=== PATIENT | male | born 1945 | race Caucasian/White ===

== ENCOUNTER 2017-05-29 07:30 | Inpatient (IN) | payer MEDICARE, BC ==
[2017-05-29] MEDS ORDERED: FLU Vacc TS 2017-18 (65yr UP)/PF 180 MCG/0.5 ML Syringe IM ONE (09:26)
[2017-05-29] MEDS ORDERED: Lidocaine 1%/Sod Bicarbonate in NS 8.4% 1 ML Syringe IV PRN (10:27)
[2017-05-29] MEDS ORDERED: Sodium Chloride 0.9% 10 ML Syringe FLUSH PRN (10:27)
[2017-05-29] MEDS ORDERED: Lactated Ringers 1,000 ML IV SCH (10:30)
[2017-05-29] MEDS ORDERED: Propofol 200 MG/20 ML SDV ONE (10:41)
[2017-05-29] MEDS ORDERED: Ondansetron 4 MG/2 ML SDV ONE (10:41)
[2017-05-29] MEDS ORDERED: fentaNYL 100 MCG/2 ML SDV ONE (10:42)
[2017-05-29] MEDS ORDERED: Midazolam 1 MG/ML 2 ML SDV ONE (10:42)
[2017-05-29] MEDS ORDERED: ceFAZolin 1 GM Vial ONE (10:44)
--- NOTE | 2017-05-29 10:49 | PCM.PREANE ---
Preanesthetic Assessment - Anesthesia/Transfusion/Family Hx Anesthesia History: Prior Anesthesia Without Reaction Family History of Anesthesia Reaction: No Transfusion History: No Prior Transfusion(s) Intubation History: Unknown - Review of Systems General: No Symptoms, Fatigue Pulmonary: No Symptoms Cardiovascular: No Symptoms (HTN, CAD, Carotid artery disease), Dyspnea on Exertion (on occasion) Gastrointestinal: No Symptoms (GERD) Neurological: No Symptoms (Lumbar spine surgery: L2-L5. with bilateral feet paresthesia), Numbness (sacroiliac joint pain, neuropathy/left hand 3 finger numbness (1,2,3)), Weakness (bilateral leg weakness), Gait Disturbance Other: Reports: Sinus Problem (allergic rhinitis), Depression - Physical Assessment NPO Status Date: 05/28/17 NPO Status Time: 22:00 Pulse: 64 O2 Sat by Pulse Oximetry: 96 Respiratory Rate: 16 Blood Pressure: 133/74 Temperature: 36.6 C Vital Signs: Last Vital Signs Temp 36.6 C 05/29/17 09:10 Pulse 64 05/29/17 09:10 Resp 16 05/29/17 09:10 BP 133/74 05/29/17 09:10 Pulse Ox 96 05/29/17 09:10 Height: 1.8 m Weight: 85.729 kg ASA Class: 3 Mental Status: Alert & Oriented x3 Airway Class: Mallampati = 2 Dentition: Reports: Normal Dentition, Missing Tooth/Teeth, Caries Thyro-Mental Finger Breadths: 3 Mouth Opening Finger Breadths: 3 ROM/Head Extension: Full Lungs: Clear to Auscultation, Normal Respiratory Effort Cardiovascular: Regular Rate, Regular Rhythm, No Murmurs - Lab Values: Laboratory Last Values MRSA (PCR) Negative 05/16/17 16:00 All lab values reviewed and noted and within acceptable ranges to proceed with scheduled procedure. - Imaging/EKG Impressions: EKG: NSR rate 64, nonspecific T wave abnormality Stress test 2016: negative CXR: negative - Allergies Allergies/Adverse Reactions: Allergies Allergy/AdvReac Type Severity Reaction Status Date / Time NSAIDS (Non-Steroidal Allergy Rash Verified 05/26/17 07:25 Anti-Inflamma povidone-iodine Allergy Rash Verified 05/26/17 07:25 [From Betadine] soap [From Betadine] Allergy Rash Verified 05/26/17 07:25 valdecoxib [From Bextra] Allergy Unknown Verified 05/26/17 07:25 ezetimibe [From Zetia] AdvReac Weakness, Verified 05/29/17 07:21 Nausea zolpidem [From Ambien] AdvReac Confusion Verified 05/29/17 07:21 - Anesthesia Plan Pre-Op Medication Ordered: Beta Dianne Beta Dianne: Other (Bystolic) Med Last Dose Date: 05/29/17 Med Last Dose Time: 06:30 - Acknowledgements Anesthesia Type Planned: Spinal Pt an Appropriate Candidate for the Planned Anesthesia: Yes Alternatives and Risks of Anesthesia Discussed w Pt/Guardian: Yes Pt/Guardian Understands and Agrees with Anesthesia Plan: Yes PreAnesthesia Questionnaire HEENT History: Reports: Allergic Rhinitis Cardiovascular History: Reports: CAD, High Cholesterol, Hypertension Other Cardiovascular History: Generalized Atherosclerosis Gastrointestinal History: Reports: GERD Other Gastrointestinal History: Change in Bowel Habit Hx. Genitourinary History: Reports: Other (See Below) Other Genitourinary History: Increased Creatinine, Hyperurcemia, Hypognadism, [place] Musculoskeletal History: Reports: Osteoarthritis, SLE Other Musculoskeletal History: SI Joint Pain, Left Foot Pain, Deformity of Right Foot Neurological History: Reports: Other (See Below) Other Neuro History: Tremor, Neuropathy Psychiatric History: Reports: Depression, Other (See Below) Other Psychiatric History: Patient states he has occassional depression, but denies depresion at this time. Patient also has history of fatigue. Other Hematologic History: Leukopenia - Past Surgical History Other HEENT Surgeries/Procedures: Patient wears glasses. Cardiovascular Surgical History: Reports: Carotid Endarterectomy, Coronary Artery Stent GI Surgical History: Reports: None Male Surgical History: Reports: None Neurological Surgical History: Reports: Lumbar Spine Musculoskeletal Surgical History: Reports: Knee Replacement, Shoulder Surgery, Other (See Below) Other Musculoskeletal Surgeries/Procedures:: Left Rotator Cuff Repair, Left Total Knee Arthroplasty - SUBSTANCE USE Smoking Status *Q: Former Smoker Tobacco Use Within Last Twelve Months: Smokeless Tobacco, Snuff/Dip Days Per Week of Alcohol Use: 0 Recreational Drug Use History: No - HOME MEDS Home Medications: Home Meds Allopurinol [Zyloprim] 300 mg PO DAILY 05/26/17 [History] Aspirin 325 mg PO DAILY 05/26/17 [History] Cholecalciferol (Vitamin D3) [Vitamin D] 1 tab PO DAILY 05/26/17 [History] Cyanocobalamin (Vitamin B-12) [Vitamin B-12] 1 tab PO DAILY 05/26/17 [History] Nebivolol [Bystolic] 5 mg PO DAILY 05/26/17 [History] Testosterone Cypionate [Depo-Testosterone] 1 ampule IM ASDIRECTED 05/26/17 [ History] Triamterene/Hydrochlorothiazid [Triamterene-HCTZ 37.5-25 MG] 1 tab PO DAILY [History] Ubidecarenone [Co Q-10] 100 mg PO DAILY 05/26/17 [History] atorvaSTATin [Lipitor] 10 mg PO DAILY 05/26/17 [History] - CURRENT (IN HOUSE) MEDS Current Meds: Current Medications Aspirin (Ecotrin) 325 mg PO BID VITALY Bisacodyl (Dulcolax) 5 mg PO DAILY PRN PRN Reason: Constipation Epinephrine HCl 0.3 mg/Cefuroxime Sodium 750 mg/Sodium Chloride 27.9 ml/ Morphine Sulfate 8 mg 0 mg .XX ONETIME ONE Stop: 05/29/17 11:31 Cyclobenzaprine HCl (Flexeril) 10 mg PO TID PRN PRN Reason: Spasms Diphenhydramine HCl (Benadryl) 25 mg IVPUSH Q4H PRN PRN Reason: Nausea Docusate Sodium (Colace) 100 mg PO BID VITALY Famotidine (Pepcid) 20 mg PO BID PENDING SALE TO [facility] Cefazolin Sodium/Dextrose 2 gm (/ Premix) 50 mls @ 100 mls/hr IV Q8H PENDING SALE TO [facility] Stop: 05/30/17 10:44 Lactated Ringer's (Ringers, Lactated) 1,000 mls @ 125 mls/hr IV ASDIRECTED PENDING SALE TO [facility] Last Admin: 05/29/17 09:40 Dose: 125 mls/hr Lidocaine/Sodium Bicarbonate (Buffered Lidocaine 1% In Ns 8.4%) 0.25 ml IV ONETIME PRN PRN Reason: Prior to IV Start Last Admin: 05/29/17 09:39 Dose: 0.25 ml Magnesium Hydroxide (Milk Of Magnesia) 30 ml PO BID PRN PRN Reason: Constipation Morphine Sulfate (Morphine) 2 mg IVPUSH Q2H PRN PRN Reason: Breakthrough Pain Naloxone HCl (Narcan) 0.1 mg IVPUSH Q5M PRN PRN Reason: Oversedation Ondansetron HCl (Zofran) 4 mg IVPUSH Q6H PRN PRN Reason: Nausea/Vomiting Oxycodone/Acetaminophen (Percocet 325-5 Mg) 1 - 2 tab PO Q4H PRN PRN Reason: Pain Senna (Senna) 8.6 mg PO BID PRN PRN Reason: Constipation Sodium Chloride (Saline Flush) 10 ml FLUSH ASDIRECTED PRN PRN Reason: Keep Vein Open Discontinued Medications Bupivacaine HCl (Marcaine 0.25%) Confirm Administered Dose 30 ml .ROUTE .STK- MED ONE Stop: 05/29/17 10:10 Cefazolin Sodium (Ancef) Confirm Administered Dose 2 gm .ROUTE .STK-MED ONE Stop: 05/29/17 10:09 Cefazolin Sodium (Ancef) Confirm Administered Dose 2 gm .ROUTE .STK-MED ONE Stop: 05/29/17 10:45 Fentanyl (Sublimaze) Confirm Administered Dose 100 mcg .ROUTE .STK-MED ONE Stop: 05/29/17 10:43 Influenza Virus Vaccine (Fluzone High-Dose ) 180 mcg IM .ONCE ONE Stop: 05/29/17 09:27 Midazolam HCl (Versed 1 Mg/Ml) Confirm Administered Dose 2 mg .ROUTE .STK-MED ONE Stop: 05/29/17 10:43 Ondansetron HCl (Zofran) Confirm Administered Dose 4 mg .ROUTE .STK-MED ONE Stop: 05/29/17 10:42 Propofol (Diprivan 20 Ml) Confirm Administered Dose 600 mg .ROUTE .STK-MED ONE Stop: 05/29/17 10:42 Tranexamic Acid (Cyklokapron) Confirm Administered Dose 1,000 mg .ROUTE .STK- MED ONE Stop: 05/29/17 10:09 Vancomycin HCl (Vancomycin) Confirm Administered Dose 1 gm .ROUTE .STK-MED ONE Stop: 05/29/17 10:09
[2017-05-29] MEDS ORDERED: Morphine PF 1 MG/ML Amp ONE (10:58)
[2017-05-29] MEDS ORDERED: SODIUM CHLORIDE 0.9% ONE ×8 (11:30→12:30)
[2017-05-29] MEDS ORDERED: EPINEPHRINE ONE ×8 (11:30→12:30)
[2017-05-29] MEDS ORDERED: MORPHINE ONE ×8 (11:30→12:30)
[2017-05-29] MEDS ORDERED: CEFUROXIME ONE ×8 (11:30→12:30)
[2017-05-29] MEDS: Bupivacaine 0.25% 30 ML SDV ONE ×2 (12:20→12:49)
[2017-05-29] MEDS: ceFAZolin 1 GM Vial ONE ×2 (12:20→12:42)
[2017-05-29] MEDS: Vancomycin 1 GM SDV ONE ×2 (12:22→12:52)
[2017-05-29] MEDS ORDERED: Naloxone 0.4 MG/ML SDV IVPUSH PRN (13:00)
[2017-05-29] MEDS ORDERED: Morphine 4 MG/ML Syringe IVPUSH PRN (13:00)
[2017-05-29] MEDS ORDERED: Ondansetron 4 MG/2 ML SDV IVPUSH PRN ×2 (13:00→13:54)
[2017-05-29] MEDS ORDERED: Magnesium Hydroxide 400 MG/5 ML Susp 30 ML Cup PO PRN (13:00)
[2017-05-29] MEDS ORDERED: Bisacodyl 5 MG Tab PO PRN (13:00)
[2017-05-29] MEDS ORDERED: diphenhydrAMINE 50 MG/ML SDV IVPUSH PRN ×2 (13:00→13:54)
[2017-05-29] MEDS ORDERED: Sennosides 8.6 MG Tab PO PRN (13:00)
--- NOTE | 2017-05-29 13:52 | PCM.POSTAN ---
POST ANESTHESIA ASSESSMENT - MENTAL STATUS Mental Status: Other (drowsy) - VITAL SIGNS Pulse Rate: 72 SaO2: 96 Resp Rate: 16 Blood Pressure: 90/56 Temperature: 36.5 C - RESPIRATORY Respiratory Status: Respiratory Rate WNL, Airway Patent, O2 Saturation Stable - CARDIOVASCULAR CV Status: Pulse Rate WNL, Blood Pressure Stable - GASTROINTESTINAL GI Status: No Symptoms - PAIN Pain Score: 0 - POST OP HYDRATION Hydration Status: Adequate & Stable
[2017-05-29] MEDS ORDERED: Meperidine PF 50 MG/ML Syringe IVPUSH PRN (13:54)
--- NOTE | 2017-05-29 14:34 | CR ---
Right knee: AP and lateral views of the right knee were obtained. Comparison: No previous study. Knee prosthesis is seen. Components are aligned. Soft tissue air is noted from the surgical procedure. Underlying bony structures are intact. Impression: 1. Satisfactory radiographic appearance of recently placed right knee prosthesis. Diagnostic code #2
--- NOTE | 2017-05-29 14:34 | CR ---
Right hip: AP and lateral views of the right hip were obtained. Vascular calcification is seen. Joint space within the right hip is preserved. No acute fracture or other abnormality is seen. Impression: 1. Incidental finding. Diagnostic code #1
--- NOTE | 2017-05-29 15:18 | PCM48HPAN ---
Post Anesthesia Note - EVALUATION WITHIN 48HRS OF ANESTHETIC Vital Signs in Normal Range: Yes Patient Participated in Evaluation: Yes Respiratory Function Stable: Yes Airway Patent: Yes Cardiovascular Function Stable: Yes Hydration Status Stable: Yes Pain Control Satisfactory: Yes Nausea and Vomiting Control Satisfactory: Yes Mental Status Recovered: Yes
--- NOTE | 2017-05-29 18:59 | PCM.CONS ---
H&P History of Present Illness - General Date of Service: 05/29/17 Admit Problem/Dx: Admission Diagnosis/Problem Admission Diagnosis/Problem Osteoarthritis of knee Source of Information: Patient, Family, Old Records - History of Present Illness Initial Comments - Free Text/Narative: Dexter is a 72-year-old male status post right TKA with Dr. Gaffney earlier today. He is doing well. States minimal to no pain to his knee. He denies nausea. Soto catheter is in place draining clear yellow urine. He has done range of motion exercises with physical therapy but has not been up yet since surgery. He has no complaints or concerns nor does his who is in the room with him. Past medical history coronary artery disease status post PCI, carotid artery disease status post CEA to the left side, hypertension, hyperlipidemia, GERD, chronic kidney disease, gout, history of lupus, low back pain with peripheral neuropathy, history of leukopenia, history of seasonal allergies, depression. Hospitalist service is consulted for postoperative medical management. Patient is full CODE STATUS. Right Knee Pain Score (Numeric/FACES): 0 - Related Data Allergies/Adverse Reactions: Allergies Allergy/AdvReac Type Severity Reaction Status Date / Time NSAIDS (Non-Steroidal Allergy Rash Verified 05/26/17 07:25 Anti-Inflamma povidone-iodine Allergy Rash Verified 05/26/17 07:25 [From Betadine] soap [From Betadine] Allergy Rash Verified 05/26/17 07:25 valdecoxib [From Bextra] Allergy Unknown Verified 05/26/17 07:25 ezetimibe [From Zetia] AdvReac Weakness, Verified 05/29/17 07:21 Nausea zolpidem [From Ambien] AdvReac Confusion Verified 05/29/17 07:21 Home Medications: Home Meds Allopurinol [Zyloprim] 300 mg PO DAILY 05/26/17 [History] Aspirin 325 mg PO DAILY 05/26/17 [History] Cholecalciferol (Vitamin D3) [Vitamin D] 1 tab PO DAILY 05/26/17 [History] Cyanocobalamin (Vitamin B-12) [Vitamin B-12] 1 tab PO DAILY 05/26/17 [History] Nebivolol [Bystolic] 5 mg PO DAILY 05/26/17 [History] Testosterone Cypionate [Depo-Testosterone] 1 ampule IM ASDIRECTED 05/26/17 [ History] Triamterene/Hydrochlorothiazid [Triamterene-HCTZ 37.5-25 MG] 1 tab PO DAILY [History] Ubidecarenone [Co Q-10] 100 mg PO DAILY 05/26/17 [History] atorvaSTATin [Lipitor] 20 mg PO DAILY 05/26/17 [History] Past Medical History HEENT History: Reports: Allergic Rhinitis Cardiovascular History: Reports: CAD, High Cholesterol, Hypertension Other Cardiovascular History: Generalized Atherosclerosis Gastrointestinal History: Reports: GERD Other Gastrointestinal History: Change in Bowel Habit Hx. Genitourinary History: Reports: Other (See Below) Other Genitourinary History: Increased Creatinine, Hyperurcemia, Hypognadism, [place] Musculoskeletal History: Reports: Osteoarthritis, SLE Other Musculoskeletal History: SI Joint Pain, Left Foot Pain, Deformity of Right Foot Neurological History: Reports: Other (See Below) Other Neuro History: Tremor, Neuropathy Psychiatric History: Reports: Depression, Other (See Below) Other Psychiatric History: Patient states he has occassional depression, but denies depresion at this time. Patient also has history of fatigue. Other Hematologic History: Leukopenia - Past Surgical History Other HEENT Surgeries/Procedures: Patient wears glasses. Cardiovascular Surgical History: Reports: Carotid Endarterectomy, Coronary Artery Stent GI Surgical History: Reports: None Male Surgical History: Reports: None Neurological Surgical History: Reports: Lumbar Spine Musculoskeletal Surgical History: Reports: Knee Replacement, Shoulder Surgery, Other (See Below) Other Musculoskeletal Surgeries/Procedures:: Left Rotator Cuff Repair, Left Total Knee Arthroplasty Social & Family History - Tobacco Use Smoking Status *Q: Current Every Day Smoker Years of Tobacco use: 42 Packs/Tins Daily: 0.5 Used Tobacco, but Quit: No - Caffeine Use Caffeine Use: Reports: Soda - Alcohol Use Days Per Week of Alcohol Use: 0 - Recreational Drug Use Recreational Drug Use: No Drug Use in Last 12 Months: No H&P Review of Systems - Review of Systems: Review Of Systems: See Below General: Reports: No Symptoms HEENT: Reports: No Symptoms Pulmonary: Reports: No Symptoms Cardiovascular: Reports: No Symptoms Gastrointestinal: Reports: No Symptoms Genitourinary: Reports: No Symptoms, Other (soto cath in place) Musculoskeletal: Reports: Leg Pain (minimal to none at time of visit) Psychiatric: Reports: No Symptoms Neurological: Reports: No Symptoms Exam - Exam Exam: See Below - Vital Signs Vital Signs: Last Vital Signs Temp 97.6 F 05/29/17 15:16 Pulse 69 05/29/17 16:00 Resp 17 05/29/17 16:00 BP 137/72 05/29/17 16:00 Pulse Ox 97 05/29/17 16:00 Weight: 192 lb 12.8 oz - Exam Quality Assessment: Supplemental Oxygen, Urinary Catheter, DVT Prophylaxis General: Alert, Oriented, Cooperative HEENT: Conjunctiva Clear, EOMI, Mucosa Moist & [place], Pupils Equal, PERRLA Neck: Supple Lungs: Clear to Auscultation, Normal Respiratory Effort Cardiovascular: Regular Rate, Regular Rhythm, Systolic Murmur (Patient states this is new as of the last month or so, was found on his preoperative history and physical with his primary care provider Dr. Pantoja in [place].) GI/Abdominal Exam: Normal Bowel Sounds, Soft, Non-Tender (Male) Exam: Deferred Rectal (Males) Exam: Deferred Extremities: Other (ice and tameka wrap to knee) Peripheral Pulses: 2+: Dorsalis Pedis (L), Dorsalis Pedis (R) Neuro Extensive - Mental Status: Alert, Oriented x3, Normal Mood/Affect, Normal Cognition, Memory Intact Psychiatric: Alert, Normal Affect, Normal Mood Consult PN Assessment/Plan POD#: 0 (1) S/P total knee arthroplasty SNOMED Code(s): 4530253736657, 6075541803638 Code(s): Z96.659 - PRESENCE OF UNSPECIFIED ARTIFICIAL KNEE JOINT Priority: High Current Visit: Yes Qualifiers: Laterality: right Qualified Code(s): Z96.651 - Presence of right artificial knee joint (2) Osteoarthritis SNOMED Code(s): 329263124 Code(s): M19.90 - UNSPECIFIED OSTEOARTHRITIS, UNSPECIFIED SITE Priority: High Current Visit: Yes Qualifiers: Osteoarthritis location: knee Osteoarthritis type: primary Laterality: right Qualified Code(s): M17.11 - Unilateral primary osteoarthritis, right knee (3) CAD (coronary artery disease) SNOMED Code(s): 21575941 Code(s): I25.10 - ATHSCL HEART DISEASE OF [place] CORONARY ARTERY W/O ANG PCTRS Priority: Medium Current Visit: No Qualifiers: Coronary Disease-Associated Artery/Lesion type: unspecified vessel or lesion type [place] vs. transplanted heart: [place] heart Associated angina: without angina Qualified Code(s): I25.10 - Atherosclerotic heart disease of [place] coronary artery without angina pectoris (4) Carotid artery disease SNOMED Code(s): 978326080 Code(s): I77.9 - DISORDER OF ARTERIES AND ARTERIOLES, UNSPECIFIED Priority : Medium Current Visit: No Qualifiers: Laterality: left Qualified Code(s): I77.9 - Disorder of arteries and arterioles, unspecified (5) HLD (hyperlipidemia) SNOMED Code(s): 73875762 Code(s): E78.5 - HYPERLIPIDEMIA, UNSPECIFIED Priority: Medium Current Visit: No Qualifiers: Hyperlipidemia type: unspecified Qualified Code(s): E78.5 - Hyperlipidemia , unspecified (6) HTN (hypertension) SNOMED Code(s): 89448108 Code(s): I10 - ESSENTIAL (PRIMARY) HYPERTENSION Priority: Medium Current Visit: No Qualifiers: Hypertension type: essential hypertension Qualified Code(s): I10 - Essential (primary) hypertension (7) SLE (systemic lupus erythematosus) SNOMED Code(s): 42619010 Code(s): M32.9 - SYSTEMIC LUPUS ERYTHEMATOSUS, UNSPECIFIED Priority: Medium Current Visit: No Qualifiers: Systemic lupus erythematosus type: unspecified Systemic lupus erythematosus organ involvement: unspecified Qualified Code(s): M32.9 - Systemic lupus erythematosus, unspecified (8) CKD (chronic kidney disease) SNOMED Code(s): 384462420 Code(s): N18.9 - CHRONIC KIDNEY DISEASE, UNSPECIFIED Priority: Medium Current Visit: Yes (9) Chronic low back pain SNOMED Code(s): 231278326 Code(s): M54.5 - LOW BACK PAIN; G89.29 - OTHER CHRONIC PAIN Priority: Medium Current Visit: No Qualifiers: Back pain laterality: unspecified (10) Peripheral neuropathy SNOMED Code(s): 518309907 Code(s): G62.9 - POLYNEUROPATHY, UNSPECIFIED Priority: Medium Current Visit: No Problem List Initiated/Reviewed/Updated: Yes Plan: I/P: S/P total right knee arthroplasty, POD # 0, Dr. Lai - Pain management and DVT prophylax - PT/OT - RT/IS - Hgb , will follow with a.m. labs - Vital signs stable, continue close monitoring, supplemental oxygen if needed for saturations less than 90% Chronic conditions: -Coronary artery disease status post PCI, CAD s/p lt CEA, HLD- continue home meds -HTN- cont home meds -CKD- monitor am labs -Gout- cont home meds -GERD- GI Prophylax -Depression -Hypogonadism -Chronic LBP with neuropathy -Hx leukopenia Other: GI Prophylax CM/SW for DC planning Patient is full Code status. Requesting Provider: Yeimy Date Consult Requested: 05/29/17 Reason for Consult: Postoperative medical management Patient History Reviewed: Yes Admission H&P Reviewed: Yes Time Spent (in minutes): 40
[2017-05-29] MEDS: Acetaminophen/oxyCODONE 325-5 MG Tab PO PRN ×2 (19:40→23:41)
[2017-05-29] MEDS: ceFAZolin 2 GM in Premix Bag 1 BAG IV SCH (19:42)
[2017-05-29] MEDS: Cyclobenzaprine 10 MG Tab PO PRN (21:22)
[2017-05-29] MEDS: Docusate Sodium 100 MG Cap PO SCH (21:22)
[2017-05-29] MEDS: Famotidine 20 MG Tab PO SCH (21:22)
[2017-05-30] MEDS: ceFAZolin 2 GM in Premix Bag 1 BAG IV SCH ×2 (03:14→12:13)
[2017-05-30] MEDS ORDERED: Aspirin 325 MG Tab.EC PO SCH (09:00)
[2017-05-30] MEDS: Docusate Sodium 100 MG Cap PO SCH (12:12)
[2017-05-30] MEDS: Famotidine 20 MG Tab PO SCH (12:13)
[2017-05-30] MEDS ORDERED: Tamsulosin 0.4 MG Cap.ER PO ONE (13:00)
[2017-05-30] MEDS: Cyclobenzaprine 10 MG Tab PO PRN (13:58)
[2017-05-30] MEDS: Acetaminophen/oxyCODONE 325-5 MG Tab PO PRN (13:58)
--- NOTE | 2017-05-30 16:37 | PCM.CONSN ---
- General Info Date of Service: 05/30/17 Admission Dx/Problem (Free Text): Admission Diagnosis/Problem Admission Diagnosis/Problem Osteoarthritis of knee Postop day #1 left total knee arthroplasty with Dr. Lai today. Pain is controlled at this time. No nausea with meals. He has not voided at the time that I saw him this morning. Vital signs are stable he's afebrile. He slept some last night but not great. Functional Status: Reports: Pain Controlled, Tolerating Diet, Ambulating, Incentive Spirometry - Review of Systems General: Reports: No Symptoms HEENT: Reports: No Symptoms Pulmonary: Reports: No Symptoms Cardiovascular: Reports: No Symptoms Gastrointestinal: Reports: No Symptoms Genitourinary: Reports: No Symptoms Musculoskeletal: Reports: Leg Pain Skin: Reports: No Symptoms Neurological: Reports: No Symptoms Psychiatric: Reports: No Symptoms - Patient Data Vitals - Most Recent: Last Vital Signs Temp 98.7 F 05/30/17 08:00 Pulse 87 05/30/17 08:00 Resp 18 05/30/17 08:00 BP 144/75 H 05/30/17 08:00 Pulse Ox 92 L 05/30/17 08:00 Weight - Most Recent: 192 lb 12.8 oz I&O - Last 24 Hours: Intake & Output 05/29/17 05/30/17 05/30/17 22:59 06:59 14:59 Intake Total 450 100 Output Total 325 Balance 125 100 Med Orders - Current: Current Medications Aspirin (Ecotrin) 325 mg PO BID [facility] Last Admin: 05/30/17 12:12 Dose: Not Given Bisacodyl (Dulcolax) 5 mg PO DAILY PRN PRN Reason: Constipation Cyclobenzaprine HCl (Flexeril) 10 mg PO TID PRN PRN Reason: Spasms Last Admin: 05/29/17 21:22 Dose: 10 mg Diphenhydramine HCl (Benadryl) 25 mg IVPUSH Q4H PRN PRN Reason: Nausea Docusate Sodium (Colace) 100 mg PO BID [facility] Last Admin: 05/30/17 12:12 Dose: Not Given Famotidine (Pepcid) 20 mg PO BID [facility] Last Admin: 05/30/17 12:13 Dose: Not Given Cefazolin Sodium/Dextrose 2 gm (/ Premix) 50 mls @ 100 mls/hr IV Q8H [facility] Stop: 05/30/17 10:44 Last Admin: 05/30/17 12:13 Dose: Not Given Lactated Ringer's (Ringers, Lactated) 1,000 mls @ 125 mls/hr IV ASDIRECTED [facility] Last Admin: 05/29/17 09:40 Dose: 125 mls/hr Lidocaine/Sodium Bicarbonate (Buffered Lidocaine 1% In Ns 8.4%) 0.25 ml IV ONETIME PRN PRN Reason: Prior to IV Start Last Admin: 05/29/17 09:39 Dose: 0.25 ml Magnesium Hydroxide (Milk Of Magnesia) 30 ml PO BID PRN PRN Reason: Constipation Morphine Sulfate (Morphine) 2 mg IVPUSH Q2H PRN PRN Reason: Breakthrough Pain Naloxone HCl (Narcan) 0.1 mg IVPUSH Q5M PRN PRN Reason: Oversedation Ondansetron HCl (Zofran) 4 mg IVPUSH Q6H PRN PRN Reason: Nausea/Vomiting Oxycodone/Acetaminophen (Percocet 325-5 Mg) 1 - 2 tab PO Q4H PRN PRN Reason: Pain Last Admin: 05/29/17 23:41 Dose: 2 tab Senna (Senna) 8.6 mg PO BID PRN PRN Reason: Constipation Sodium Chloride (Saline Flush) 10 ml FLUSH ASDIRECTED PRN PRN Reason: Keep Vein Open Discontinued Medications Bupivacaine HCl (Marcaine 0.25%) Confirm Administered Dose 30 ml .ROUTE .STK- MED ONE Stop: 05/29/17 10:10 Last Admin: 05/29/17 12:49 Dose: 30 ml Cefazolin Sodium (Ancef) Confirm Administered Dose 2 gm .ROUTE .STK-MED ONE Stop: 05/29/17 10:09 Last Admin: 05/29/17 12:42 Dose: 2 gm Cefazolin Sodium (Ancef) Confirm Administered Dose 2 gm .ROUTE .STK-MED ONE Stop: 05/29/17 10:45 Epinephrine HCl 0.3 mg/Cefuroxime Sodium 750 mg/Sodium Chloride 27.9 ml/ Morphine Sulfate 8 mg 0 mg .XX ONETIME ONE Stop: 05/29/17 11:31 Last Admin: 05/29/17 15:26 Dose: Not Given Diphenhydramine HCl (Benadryl) 25 mg IVPUSH Q6H PRN PRN Reason: pruritis Stop: 05/29/17 20:00 Fentanyl (Sublimaze) Confirm Administered Dose 100 mcg .ROUTE .STK-MED ONE Stop: 05/29/17 10:43 Influenza Virus Vaccine (Fluzone High-Dose 2016-) 180 mcg IM .ONCE ONE Stop: 05/29/17 09:27 Meperidine HCl (Demerol) 12.5 mg IVPUSH ONETIME PRN PRN Reason: shivering Stop: 05/29/17 20:00 Midazolam HCl (Versed 1 Mg/Ml) Confirm Administered Dose 2 mg .ROUTE .STK-MED ONE Stop: 05/29/17 10:43 Morphine Sulfate (Duramorph Pf) Confirm Administered Dose 1 mg .ROUTE .STK-MED ONE Stop: 05/29/17 10:59 Ondansetron HCl (Zofran) Confirm Administered Dose 4 mg .ROUTE .STK-MED ONE Stop: 05/29/17 10:42 Ondansetron HCl (Zofran) 4 mg IVPUSH ONETIME PRN PRN Reason: Nausea/Vomiting Stop: 05/29/17 20:00 Propofol (Diprivan 20 Ml) Confirm Administered Dose 600 mg .ROUTE .STK-MED ONE Stop: 05/29/17 10:42 Tranexamic Acid (Cyklokapron) Confirm Administered Dose 1,000 mg .ROUTE .STK- MED ONE Stop: 05/29/17 10:09 Last Admin: 05/29/17 12:50 Dose: 1,000 mg Vancomycin HCl (Vancomycin) Confirm Administered Dose 1 gm .ROUTE .STK-MED ONE Stop: 05/29/17 10:09 Last Admin: 05/29/17 12:52 Dose: 1 gm - Exam Quality Assessment: DVT Prophylaxis General: Alert, Oriented, Cooperative, No Acute Distress HEENT: Pupils Equal, Pupils Reactive, Mucous Membr. Moist/Schubert Neck: Supple Lungs: Clear to Auscultation, Normal Respiratory Effort Cardiovascular: Regular Rate, Regular Rhythm GI/Abdominal Exam: Normal Bowel Sounds, Soft, Non-Tender (Male) Exam: Deferred Extremities: Other (Lucas wrap and ice to left knee. CMS is positive and equal bilaterally to lower extremities. Dorsalis pedis pulses are 2+ and equal bilaterally) Neurological: No New Focal Deficit Psy/Mental Status: Alert, Normal Affect, Normal Mood Consult PN Assessment/Plan POD#: 1 (1) S/P total knee arthroplasty SNOMED Code(s): 2154095126800, 1688220657785 Code(s): Z96.659 - PRESENCE OF UNSPECIFIED ARTIFICIAL KNEE JOINT Priority: High Current Visit: Yes Qualifiers: Laterality: right Qualified Code(s): Z96.651 - Presence of right artificial knee joint (2) Osteoarthritis SNOMED Code(s): 838367048 Code(s): M19.90 - UNSPECIFIED OSTEOARTHRITIS, UNSPECIFIED SITE Priority: High Current Visit: Yes Qualifiers: Osteoarthritis location: knee Osteoarthritis type: primary Laterality: right Qualified Code(s): M17.11 - Unilateral primary osteoarthritis, right knee (3) CAD (coronary artery disease) SNOMED Code(s): 36561006 Code(s): I25.10 - ATHSCL HEART DISEASE OF [place] CORONARY ARTERY W/O ANG PCTRS Priority: Medium Current Visit: No Qualifiers: Coronary Disease-Associated Artery/Lesion type: unspecified vessel or lesion type [place] vs. transplanted heart: [place] heart Associated angina: without angina Qualified Code(s): I25.10 - Atherosclerotic heart disease of [place] coronary artery without angina pectoris (4) Carotid artery disease SNOMED Code(s): 247445572 Code(s): I77.9 - DISORDER OF ARTERIES AND ARTERIOLES, UNSPECIFIED Priority : Medium Current Visit: No Qualifiers: Laterality: left Qualified Code(s): I77.9 - Disorder of arteries and arterioles, unspecified (5) HLD (hyperlipidemia) SNOMED Code(s): 25379754 Code(s): E78.5 - HYPERLIPIDEMIA, UNSPECIFIED Priority: Medium Current Visit: No Qualifiers: Hyperlipidemia type: unspecified Qualified Code(s): E78.5 - Hyperlipidemia , unspecified (6) HTN (hypertension) SNOMED Code(s): 04455297 Code(s): I10 - ESSENTIAL (PRIMARY) HYPERTENSION Priority: Medium Current Visit: No Qualifiers: Hypertension type: essential hypertension Qualified Code(s): I10 - Essential (primary) hypertension (7) SLE (systemic lupus erythematosus) SNOMED Code(s): 28593596 Code(s): M32.9 - SYSTEMIC LUPUS ERYTHEMATOSUS, UNSPECIFIED Priority: Medium Current Visit: No Qualifiers: Systemic lupus erythematosus type: unspecified Systemic lupus erythematosus organ involvement: unspecified Qualified Code(s): M32.9 - Systemic lupus erythematosus, unspecified (8) CKD (chronic kidney disease) SNOMED Code(s): 354385316 Code(s): N18.9 - CHRONIC KIDNEY DISEASE, UNSPECIFIED Priority: Medium Current Visit: Yes (9) Chronic low back pain SNOMED Code(s): 032606921 Code(s): M54.5 - LOW BACK PAIN; G89.29 - OTHER CHRONIC PAIN Priority: Medium Current Visit: No Qualifiers: Back pain laterality: unspecified (10) Peripheral neuropathy SNOMED Code(s): 034480903 Code(s): G62.9 - POLYNEUROPATHY, UNSPECIFIED Priority: Medium Current Visit: No Problem List Initiated/Reviewed/Updated: Yes Plan: I/P: S/P total right knee arthroplasty, POD # 1, Dr. Lai - Pain management and DVT prophylax - PT/OT - RT/IS - Hgb 11.8 - Vital signs stable, continue close monitoring, supplemental oxygen if needed for saturations less than 90% Question of urinary retention, has not voided at time of my visit this morning. We will give Flomax by mouth if needed. Chronic conditions: -Coronary artery disease status post PCI, CAD s/p lt CEA, HLD- continue home meds -HTN- cont home meds -CKD- monitor am labs -Gout- cont home meds -GERD- GI Prophylax -Depression -Hypogonadism -Chronic LBP with neuropathy -Hx leukopenia Other: GI Prophylax CM/SW for DC planning--patient is doing very well from a medical standpoint. Vital signs stable labs stable. If he does well with physical therapy and okay with orthopedics he may be discharged home today. Patient is full Code status.
--- NOTE | 2017-05-31 10:42 | PCM.SURGPN ---
- General Info Date of Service: 05/30/17 POD#: 1 Functional Status: Reports: Pain Controlled, Tolerating Diet, Ambulating, Urinating, Other (Pt received a hip injection today too.) - Patient Data Vitals - Most Recent: Last Vital Signs Temp 98.7 F 05/30/17 08:00 Pulse 82 05/30/17 12:37 Resp 16 05/30/17 12:37 BP 158/84 H 05/30/17 12:37 Pulse Ox 94 L 05/30/17 12:37 Weight - Most Recent: 192 lb 12.8 oz Lab Results Last 24 Hrs: Laboratory Results - last 24 hr 05/30/17 05/30/17 Range/Units 06:51 06:51 WBC 8.03 (4.23-9.07) K/mm3 RBC 4.14 L (4.63-6.08) M/mm3 Hgb 11.8 L (13.7-17.5) gm/L Hct 35.8 L (40.1-51.0) % MCV 86.5 (79.0-92.2) fl MCH 28.5 (25.7-32.2) pg MCHC 33.0 (32.2-35.5) g/dl RDW Std Deviation 43.0 (35.1-43.9) fL Plt Count 223 (163-337) K/mm3 MPV 11.0 (9.4-12.3) fl Neut % (Auto) 73.2 H (34.0-67.9) % Lymph % (Auto) 12.1 L (21.8-53.1) % Hitchcock % (Auto) 13.7 H (5.3-12.2) % Eos % (Auto) 0.6 L (0.8-7.0) Baso % (Auto) 0.2 (0.1-1.2) % Neut # (Auto) 5.87 H (1.78-5.38) K/mm3 Lymph # (Auto) 0.97 L (1.32-3.57) K/mm3 Hitchcock # (Auto) 1.10 H (0.30-0.82) K/mm3 Eos # (Auto) 0.05 (0.04-0.54) K/mm3 Baso # (Auto) 0.02 (0.01-0.08) K/mm3 Sodium 135 L (136-145) mEq/L Potassium 4.0 (3.5-5.1) mEq/L Chloride 99 (98-107) mEq/L Carbon Dioxide 25 (21-32) mEq/L Anion Gap 15.0 (5-15) BUN 22 H (7-18) mg/dL Creatinine 1.4 H (0.7-1.3) mg/dL Est Cr Clr Drug Dosing 52.29 mL/min Estimated GFR (MDRD) 50 (>60) mL/min BUN/Creatinine Ratio 15.7 (14-18) Glucose 122 H (80-115) mg/dL Calcium 8.6 (8.5-10.1) mg/dL Total Bilirubin 0.6 (0.2-1.0) mg/dL AST 26 (15-37) U/L ALT 27 (16-63) U/L Alkaline Phosphatase 66 (46-116) U/L Total Protein 6.5 (6.4-8.2) g/dl Albumin 3.2 L (3.4-5.0) g/dl Globulin 3.3 gm/dL Albumin/Globulin Ratio 1.0 (1-2) Med Orders - Current: Current Medications Discontinued Medications Aspirin (Ecotrin) 325 mg PO BID [facility] Last Admin: 05/30/17 12:12 Dose: Not Given Bisacodyl (Dulcolax) 5 mg PO DAILY PRN PRN Reason: Constipation Bupivacaine HCl (Marcaine 0.25%) Confirm Administered Dose 30 ml .ROUTE .STK- MED ONE Stop: 05/29/17 10:10 Last Admin: 05/29/17 12:49 Dose: 30 ml Cefazolin Sodium (Ancef) Confirm Administered Dose 2 gm .ROUTE .STK-MED ONE Stop: 05/29/17 10:09 Last Admin: 05/29/17 12:42 Dose: 2 gm Cefazolin Sodium (Ancef) Confirm Administered Dose 2 gm .ROUTE .STK-MED ONE Stop: 05/29/17 10:45 Epinephrine HCl 0.3 mg/Cefuroxime Sodium 750 mg/Sodium Chloride 27.9 ml/ Morphine Sulfate 8 mg 0 mg .XX ONETIME ONE Stop: 05/29/17 11:31 Last Admin: 05/29/17 15:26 Dose: Not Given Cyclobenzaprine HCl (Flexeril) 10 mg PO TID PRN PRN Reason: Spasms Last Admin: 05/30/17 13:58 Dose: 10 mg Diphenhydramine HCl (Benadryl) 25 mg IVPUSH Q4H PRN PRN Reason: Nausea Diphenhydramine HCl (Benadryl) 25 mg IVPUSH Q6H PRN PRN Reason: pruritis Stop: 05/29/17 20:00 Docusate Sodium (Colace) 100 mg PO BID [facility] Last Admin: 05/30/17 12:12 Dose: Not Given Famotidine (Pepcid) 20 mg PO BID [facility] Last Admin: 05/30/17 12:13 Dose: Not Given Fentanyl (Sublimaze) Confirm Administered Dose 100 mcg .ROUTE .STK-MED ONE Stop: 05/29/17 10:43 Cefazolin Sodium/Dextrose 2 gm (/ Premix) 50 mls @ 100 mls/hr IV Q8H [facility] Stop: 05/30/17 10:44 Last Admin: 05/30/17 12:13 Dose: Not Given Lactated Ringer's (Ringers, Lactated) 1,000 mls @ 125 mls/hr IV ASDIRECTED [facility] Last Admin: 05/29/17 09:40 Dose: 125 mls/hr Influenza Virus Vaccine (Fluzone High-Dose ) 180 mcg IM .ONCE ONE Stop: 05/29/17 09:27 Lidocaine/Sodium Bicarbonate (Buffered Lidocaine 1% In Ns 8.4%) 0.25 ml IV ONETIME PRN PRN Reason: Prior to IV Start Last Admin: 05/29/17 09:39 Dose: 0.25 ml Magnesium Hydroxide (Milk Of Magnesia) 30 ml PO BID PRN PRN Reason: Constipation Meperidine HCl (Demerol) 12.5 mg IVPUSH ONETIME PRN PRN Reason: shivering Stop: 05/29/17 20:00 Midazolam HCl (Versed 1 Mg/Ml) Confirm Administered Dose 2 mg .ROUTE .STK-MED ONE Stop: 05/29/17 10:43 Morphine Sulfate (Morphine) 2 mg IVPUSH Q2H PRN PRN Reason: Breakthrough Pain Last Admin: 05/30/17 14:13 Dose: 2 mg Morphine Sulfate (Duramorph Pf) Confirm Administered Dose 1 mg .ROUTE .STK-MED ONE Stop: 05/29/17 10:59 Naloxone HCl (Narcan) 0.1 mg IVPUSH Q5M PRN PRN Reason: Oversedation Ondansetron HCl (Zofran) 4 mg IVPUSH Q6H PRN PRN Reason: Nausea/Vomiting Ondansetron HCl (Zofran) Confirm Administered Dose 4 mg .ROUTE .STK-MED ONE Stop: 05/29/17 10:42 Ondansetron HCl (Zofran) 4 mg IVPUSH ONETIME PRN PRN Reason: Nausea/Vomiting Stop: 05/29/17 20:00 Oxycodone/Acetaminophen (Percocet 325-5 Mg) 1 - 2 tab PO Q4H PRN PRN Reason: Pain Last Admin: 05/30/17 13:58 Dose: 2 tab Propofol (Diprivan 20 Ml) Confirm Administered Dose 600 mg .ROUTE .STK-MED ONE Stop: 05/29/17 10:42 Senna (Senna) 8.6 mg PO BID PRN PRN Reason: Constipation Sodium Chloride (Saline Flush) 10 ml FLUSH ASDIRECTED PRN PRN Reason: Keep Vein Open Tamsulosin HCl (Flomax) 0.4 mg PO ONETIME ONE Stop: 05/30/17 13:01 Tranexamic Acid (Cyklokapron) Confirm Administered Dose 1,000 mg .ROUTE .STK- MED ONE Stop: 05/29/17 10:09 Last Admin: 05/29/17 12:50 Dose: 1,000 mg Vancomycin HCl (Vancomycin) Confirm Administered Dose 1 gm .ROUTE .STK-MED ONE Stop: 05/29/17 10:09 Last Admin: 05/29/17 12:52 Dose: 1 gm - Exam Wound/Incisions: Dressing Dry and Intact General: Alert, Cooperative, No Acute Distress Lungs: Normal Respiratory Effort Extremities: Other (NVS intact. Cristobal's negative BLE.) - Problem List Review Problem List Initiated/Reviewed/Updated: Yes - My Orders Last 24 Hours: Active Orders 24 hr Category Date Time Status Ready for Discharge [RC] PER UNIT ROUTINE Care 05/30/17 12:37 Active - Assessment Assessment (Free Text/Narrative):: POD#1 - right TKA - Plan Plan (Free Text/Narrative):: 1. The pt has met inpatient therapy goals. 2. Hip intra-articular injection today also. 3. Discharge to home today. 4. 11.8 Hgb. 5. ASA BID, frequent mobility, TEDs. Dr. Gaffney evaluated the pt today.
--- NOTE | 2017-06-01 06:50 | PCM.DCSUM1 ---
Discharge Summary - Hospital Course Brief History: Tao is a 72 yo male who underwent right TKA with Dr. Gaffney on 05-29-2017. The procedure was completed under spinal anesthesia with MAC. The pt tolerated the procedure well and was admitted under Medical-Surgical status. The pt received Ancef baron-operatively. He participated in P.T. and O.T. He was allowed to WBAT and used a FWW for mobility. The pt's surgical wound was dressed with a Mepilex dressing and remained clean and dry. On POD#1, the pt was started on 325mg ASA BID for VTE prophylaxis. The pt used TEDs and SCDs also. On POD#1, the pt's hemoglobin was 11.8. He received an intra-articular hip injection on 05-30-2017. Medial management was provided by the Hospitalist service and the pt's hospital course was uneventful. On POD#2, the pt was deemed appropriate for discharge to home with his family. - Discharge Data Discharge Date: 05/30/17 Discharge Disposition: Home, Self-Care 01 Condition: Good - Patient Summary/Data Consults: Consultations 05/29/ 06:48 OT Evaluation and Treatment [CONS] Routine PT Evaluation and Treatment [CONS] Routine - Patient Instructions Diet: Usual Diet as Tolerated Activity: Apply Ice, As Tolerated, Elevate Extremity, Full Weight Bearing Driving: Do Not Drive Showering/Bathing: May Shower Wound/Incision Care: Keep Operative Site/Wound Site Clean and Dry, Do NOT Change Dressing Notify Provider of: Fever, Increased Pain, Swelling and Redness, Drainage, Nausea and/or Vomiting Other/Special Instructions: Please get up and moving around every hour while awake. This helps to prevent blood clots. Please take 325mg aspirin twice daily - this also helps to prevent blood clots. The medication is being used for blood clot prevention and not for pain control, so please use the medication twice daily as directed. Please wear the MARCO hose during the day and you may remove them at night. Please schedule for P.T. Complete the P.T. exercises and stretches that were instructed in the Hospital. Please use the pain medication and muscle relaxant as needed. The medication may cause drowsiness and/or constipation. You could use a stool softener like docusate sodium or Colace 100mg twice daily and/or a laxative like Miralax daily for constipation. Contact your primary care provider for further instructions if you are constipated. Please schedule an appointment with your primary care provider for 'routine post-op care'. Use the incentive spirometer often. Please place ice to the knee often. Please elevate the limb to decrease swelling. Keep the Mepilex dressing in place until follow-up. Please call [phone] with questions or concerns. - Discharge Plan Prescriptions/Med Rec: Acetaminophen/oxyCODONE [Percocet 325-5 MG] 1 - 2 tab PO Q4H PRN #60 tablet PRN Reason: Pain Aspirin [Ecotrin] 325 mg PO BID #70 tab.ec Cyclobenzaprine [Flexeril] 10 mg PO TID PRN #40 tablet PRN Reason: Spasms Home Medications: Home Meds Allopurinol [Zyloprim] 300 mg PO DAILY 05/26/17 [History] Aspirin 325 mg PO DAILY 05/26/17 [History] Cholecalciferol (Vitamin D3) [Vitamin D] 1 tab PO DAILY 05/26/17 [History] Cyanocobalamin (Vitamin B-12) [Vitamin B-12] 1 tab PO DAILY 05/26/17 [History] Nebivolol [Bystolic] 5 mg PO DAILY 05/26/17 [History] Testosterone Cypionate [Depo-Testosterone] 1 ampule IM ASDIRECTED 05/26/17 [ History] Triamterene/Hydrochlorothiazid [Triamterene-HCTZ 37.5-25 MG] 1 tab PO DAILY [History] Ubidecarenone [Co Q-10] 100 mg PO DAILY 05/26/17 [History] atorvaSTATin [Lipitor] 20 mg PO DAILY 05/26/17 [History] Acetaminophen/oxyCODONE [Percocet 325-5 MG] 1 - 2 tab PO Q4H PRN #60 tablet [Rx] Aspirin [Ecotrin] 325 mg PO BID #70 tab.ec 05/30/17 [Rx] Cyclobenzaprine [Flexeril] 10 mg PO TID PRN #40 tablet 05/30/17 [Rx] Docusate Sodium [Colace] 100 mg PO BID #0 cap 05/30/17 [Rx] Famotidine [Pepcid] 20 mg PO BID tablet 12/19/17 [Rx] Patient Handouts: Total Knee Replacement, Care After, [id number], Total Knee Replacement, [id number], Aspirin, ASA oral tablets Referrals: Clement Gaffney MD [Physician] - 06/13/17 10:15 am (Second Follow Up with Radha Lundberg PA-C ) Radha Lundberg PA-C [[facility]] - 06/07/17 1:00 pm - Patient Data Vitals - Most Recent: Last Vital Signs Temp 98.7 F 05/30/17 08:00 Pulse 82 05/30/17 12:37 Resp 16 05/30/17 12:37 BP 158/84 H 05/30/17 12:37 Pulse Ox 94 L 05/30/17 12:37 Weight - Most Recent: 192 lb 12.8 oz Med Orders - Current: Current Medications Discontinued Medications Aspirin (Ecotrin) 325 mg PO BID [facility] Last Admin: 05/30/17 12:12 Dose: Not Given Bisacodyl (Dulcolax) 5 mg PO DAILY PRN PRN Reason: Constipation Bupivacaine HCl (Marcaine 0.25%) Confirm Administered Dose 30 ml .ROUTE .STK- MED ONE Stop: 05/29/17 10:10 Last Admin: 05/29/17 12:49 Dose: 30 ml Cefazolin Sodium (Ancef) Confirm Administered Dose 2 gm .ROUTE .STK-MED ONE Stop: 05/29/17 10:09 Last Admin: 05/29/17 12:42 Dose: 2 gm Cefazolin Sodium (Ancef) Confirm Administered Dose 2 gm .ROUTE .STK-MED ONE Stop: 05/29/17 10:45 Epinephrine HCl 0.3 mg/Cefuroxime Sodium 750 mg/Sodium Chloride 27.9 ml/ Morphine Sulfate 8 mg 0 mg .XX ONETIME ONE Stop: 05/29/17 11:31 Last Admin: 05/29/17 15:26 Dose: Not Given Epinephrine HCl 0.3 mg/Cefuroxime Sodium 750 mg/Sodium Chloride 27.9 ml/ Morphine Sulfate 8 mg 0 mg .XX ONETIME ONE Stop: 05/29/17 12:31 Cyclobenzaprine HCl (Flexeril) 10 mg PO TID PRN PRN Reason: Spasms Last Admin: 05/30/17 13:58 Dose: 10 mg Diphenhydramine HCl (Benadryl) 25 mg IVPUSH Q4H PRN PRN Reason: Nausea Diphenhydramine HCl (Benadryl) 25 mg IVPUSH Q6H PRN PRN Reason: pruritis Stop: 05/29/17 20:00 Docusate Sodium (Colace) 100 mg PO BID [facility] Last Admin: 05/30/17 12:12 Dose: Not Given Famotidine (Pepcid) 20 mg PO BID [facility] Last Admin: 05/30/17 12:13 Dose: Not Given Fentanyl (Sublimaze) Confirm Administered Dose 100 mcg .ROUTE .STK-MED ONE Stop: 05/29/17 10:43 Cefazolin Sodium/Dextrose 2 gm (/ Premix) 50 mls @ 100 mls/hr IV Q8H [facility] Stop: 05/30/17 10:44 Last Admin: 05/30/17 12:13 Dose: Not Given Lactated Ringer's (Ringers, Lactated) 1,000 mls @ 125 mls/hr IV ASDIRECTED [facility] Last Admin: 05/29/17 09:40 Dose: 125 mls/hr Influenza Virus Vaccine (Fluzone High-Dose ) 180 mcg IM .ONCE ONE Stop: 05/29/17 09:27 Lidocaine/Sodium Bicarbonate (Buffered Lidocaine 1% In Ns 8.4%) 0.25 ml IV ONETIME PRN PRN Reason: Prior to IV Start Last Admin: 05/29/17 09:39 Dose: 0.25 ml Magnesium Hydroxide (Milk Of Magnesia) 30 ml PO BID PRN PRN Reason: Constipation Meperidine HCl (Demerol) 12.5 mg IVPUSH ONETIME PRN PRN Reason: shivering Stop: 05/29/17 20:00 Midazolam HCl (Versed 1 Mg/Ml) Confirm Administered Dose 2 mg .ROUTE .STK-MED ONE Stop: 05/29/17 10:43 Morphine Sulfate (Morphine) 2 mg IVPUSH Q2H PRN PRN Reason: Breakthrough Pain Last Admin: 05/30/17 14:13 Dose: 2 mg Morphine Sulfate (Duramorph Pf) Confirm Administered Dose 1 mg .ROUTE .STK-MED ONE Stop: 05/29/17 10:59 Naloxone HCl (Narcan) 0.1 mg IVPUSH Q5M PRN PRN Reason: Oversedation Ondansetron HCl (Zofran) 4 mg IVPUSH Q6H PRN PRN Reason: Nausea/Vomiting Ondansetron HCl (Zofran) Confirm Administered Dose 4 mg .ROUTE .STK-MED ONE Stop: 05/29/17 10:42 Ondansetron HCl (Zofran) 4 mg IVPUSH ONETIME PRN PRN Reason: Nausea/Vomiting Stop: 05/29/17 20:00 Oxycodone/Acetaminophen (Percocet 325-5 Mg) 1 - 2 tab PO Q4H PRN PRN Reason: Pain Last Admin: 05/30/17 13:58 Dose: 2 tab Propofol (Diprivan 20 Ml) Confirm Administered Dose 600 mg .ROUTE .STK-MED ONE Stop: 05/29/17 10:42 Senna (Senna) 8.6 mg PO BID PRN PRN Reason: Constipation Sodium Chloride (Saline Flush) 10 ml FLUSH ASDIRECTED PRN PRN Reason: Keep Vein Open Tamsulosin HCl (Flomax) 0.4 mg PO ONETIME ONE Stop: 05/30/17 13:01 Tranexamic Acid (Cyklokapron) Confirm Administered Dose 1,000 mg .ROUTE .STK- MED ONE Stop: 05/29/17 10:09 Last Admin: 05/29/17 12:50 Dose: 1,000 mg Vancomycin HCl (Vancomycin) Confirm Administered Dose 1 gm .ROUTE .STK-MED ONE Stop: 05/29/17 10:09 Last Admin: 05/29/17 12:52 Dose: 1 gm *Q Meaningful Use (DIS) - VTE *Q VTE Criteria *Q: - Stroke *Q Stroke Criteria *Q: - AMI *Q AMI Criteria *Q:
--- NOTE | 2017-06-01 09:18 | PCM.OPNOTE ---
- General Post-Op/Procedure Note Date of Surgery/Procedure: 05/29/17 Operative Procedure(s): right total knee arthroplasty Pre Op Diagnosis: right knee osteoarthrosis Post-Op Diagnosis: Same Anesthesia Technique: Local, MAC, Spinal Primary Surgeon: Clement Gaffney Anesthesia Provider: Lina Kendrick Automation Control Technician: Radha Lundberg Automation Control Technician: Maureen Martinez EBL in mLs: 250 Complications: None Condition: Good
--- NOTE | 2017-06-01 10:00 | OR ---
DATE OF OPERATION: 05/29/2017 SURGEON: Clement Gaffney MD OPERATION PERFORMED: Right total knee arthroplasty. PREOPERATIVE DIAGNOSIS: Right knee osteoarthrosis. POSTOPERATIVE DIAGNOSIS: Right knee osteoarthrosis. ANESTHESIA: Local MAC with spinal. ANESTHESIA PROVIDER: Lina Kendrick. ASSISTANTS: Radha Lundberg PA-C, and Maureen Martinez LPN. ESTIMATED BLOOD LOSS: 250 mL. COMPLICATIONS: None. CONDITION: Stable. IMPLANTS: 1. [place] size 7 press-fit PS femur. 2. [place] size 7 press-fit tibial baseplate. 3. [place] size 7 11-mm PS X3 polyethylene. 4. [place] size 35 x 10 mm press-fit asymmetric patella. DESCRIPTION OF PROCEDURE: The patient was identified in the preop holding area. Proper site was marked and identified by the surgeon. The patient was taken back to the operating theater. After adequate anesthesia, the patient's right lower extremity had a nonsterile tourniquet applied and it was then sterilely prepped and draped in the usual sterile fashion. OR timeout was performed. The patient received 2 grams IV Ancef. At this time, right lower extremity was exsanguinated. Tourniquet was insufflated to 300 mmHg. Standard medial parapatellar incision was made. Medial parapatellar arthrotomy was created. Deep fibers of the MCL were raised and anterior fat pad was resected. At this time, attention was turned to the patella. Patella measured a 24, it was resected to a 14 for a 35 x 10 mm patella. Drill holes were then drilled and found to be in adequate position. The drill was then drilled in the distal femur and the intramedullary distal femoral cutting guide was then placed. 8 mm was resected off the distal femur and was found to be an adequate resection. Sizing guide was placed. It was found to be a size 7 press-fit PS femur that was shown on the implant record at the beginning of this dictation. The drill holes were drilled for the epicondylar axis using [place] line and epicondyles as reference. At this time, the 4-in-1 cutting block was placed. An anterior posterior and anterior and posterior chamfer cuts were then completed. The correct size box cut was then placed and the box cut was completed and found to be an adequate resection. Attention was turned to the tibia. The posterior medial lateral retractors were placed. The extramedullary tibial guide was placed. It was placed in the old footprint of the ACL. It was aligned with the center of the ankle and 0 degrees of slope, 9 mm was then resected off the unaffected lateral side. There was found to be an acceptable reduction. At this time, posterior osteophytes were removed along with medial and lateral meniscus. A trial implant was placed with a correct sized tibia that was mentioned at the beginning of the dictation. A size 7 11-mm PS X3 polyethylene was then placed. The patient's knee was brought through range of motion. The patella was tracking centrally and was stable to varus and valgus stress. Alignment was found to be roughly at 0 degrees. The tibia was stamped and drilled in proper rotation. The universal tibial base plate was impactred into place. Next, the size 7 press-fit PS femur was impacted into place and the size 7 11-mm PS X3 polyethylene was placed. The patient's knee was brought into full extension. The patella was then press-fit in place at this time. Tourniquet was deflated. One liter dilute Betadine solution was irrigated through the knee along with 3 L of pulse lavage irrigation with Ancef. Periarticular injection was then completed. The patient's knee was brought through a range of motion. Kneet was found to be stable to varus valgus stress, the patella was tracking centrally with full range of motion. At this time, a #2 barbed suture was used for closure of the medial parapatellar arthrotomy. Topical tranexamic acid was placed. 2-0 Vicryl was used subcutaneously, a running 3-0 Monocryl was used subcuticularly. The patient tolerated the procedure well and was sent to the PACU in stable condition. MMODAL /[id number] ADOLFO
== END 2017-05-30 16:30 | disposition home or self-care (01) | DRG 470 ==
LOC: JD.ICU 08:58 → JD.MS 08:58
PROVIDERS: ADMIT Orthopaedic Surgery; ATTEND Orthopaedic Surgery
PROC: 0SRC0J9 Replacement of Right Knee Joint with Synthetic Substitute, Cemented, Open Approach (ICD-10-PCS; principal; 2017-05-29)
DX: M17.11 Unilateral primary osteoarthritis, right knee (principal); K21.9 Gastro-esophageal reflux disease without esophagitis; I25.10 Atherosclerotic heart disease of native coronary artery without angina pectoris; Z95.5 Presence of coronary angioplasty implant and graft; E78.5 Hyperlipidemia, unspecified; I12.9 Hypertensive chronic kidney disease with stage 1 through stage 4 chronic kidney disease, or unspecified chronic kidney disease; N18.9 Chronic kidney disease, unspecified; M10.9 Gout, unspecified; G62.9 Polyneuropathy, unspecified; M54.5 Low back pain; J30.2 Other seasonal allergic rhinitis; F32.9 Major depressive disorder, single episode, unspecified; Z88.8 Allergy status to other drugs, medicaments and biological substances; Z79.82 Long term (current) use of aspirin; Z79.899 Other long term (current) drug therapy; F17.210 Nicotine dependence, cigarettes, uncomplicated
CPT/HCPCS: 01402; 36415; 73502-26-RT; 73502-RT; 73560-26-RT; 73560-RT; 80053; 85025; 87641; 97110-GP; 97116-GP; 97161-GP; 97166-GO; 97535-GO; A9270-GY; C1776; J0171; J0690; J0697; J2250; J2270; J2274; J2405; J2704; J3010; J3370; J3490; J7120

== ENCOUNTER 2017-10-16 08:16 | Inpatient (IN) | payer MEDICARE, BC ==
[~2017-10-16 08:16] MED LIST: Lactated Ringers 1,000 ML IV SCH; Lidocaine 1%/Sod Bicarbonate in NS 8.4% 1 ML Syringe IDERM PRN; Morphine 2 MG/ML Syringe IVPUSH PRN; Morphine 8 MG, EPINEPHrine 0.3 MG, Cefuroxime 750 MG, Ketorolac 30 MG, Sodium Chloride ... ONE; Morphine 8 MG, EPINEPHrine 0.3 MG, Cefuroxime 750 MG, Sodium Chloride 0.9% 28.9 ML ONE; Naloxone 0.4 MG/ML SDV IVPUSH PRN; Ondansetron 4 MG/2 ML SDV IVPUSH PRN; Sodium Chloride 0.9% 10 ML Syringe FLUSH PRN; traMADol 50 MG Tab PO PRN
[2017-10-16] MEDS ORDERED: ceFAZolin 1 GM Vial ONE ×2 (08:58→09:34)
[2017-10-16] MEDS ORDERED: Bupivacaine 0.75% 30 ML SDV ONE (08:58)
[2017-10-16] MEDS ORDERED: Propofol 200 MG/20 ML SDV ONE (08:58)
[2017-10-16] MEDS ORDERED: Morphine PF 10 MG/10 ML SDV ONE (08:59)
--- NOTE | 2017-10-16 09:21 | PCM.PREANE ---
Preanesthetic Assessment - Anesthesia/Transfusion/Family Hx Anesthesia History: Prior Anesthesia Without Reaction Family History of Anesthesia Reaction: No Transfusion History: No Prior Transfusion(s) Intubation History: Unknown - Review of Systems General: No Symptoms Pulmonary: Other (SOB with exertion, uses chewing tobacco, HTN) Cardiovascular: Other (CAD with stent 1999, stress test in 2016 negative, S/P carotid endartectomy 2018, ekg nonspecific ST and T wave changes) Neurological: Other (S/P back surgery, feet numb for the past 5-6 years, back pain) Other: Reports: None - Physical Assessment NPO Status Date: 10/15/17 NPO Status Time: 18:00 Pulse: 66 O2 Sat by Pulse Oximetry: 97 Respiratory Rate: 16 Blood Pressure: 146/76 Temperature: 37.0 C Height: 1.8 m Weight: 87 kg ASA Class: 3 Mental Status: Alert & Oriented x3 Airway Class: Mallampati = 3 Dentition: Reports: Normal Dentition Thyro-Mental Finger Breadths: 3 Mouth Opening Finger Breadths: 2 ROM/Head Extension: Limited/Partial Lungs: Clear to Auscultation, Normal Respiratory Effort Cardiovascular: Regular Rate, Regular Rhythm - Allergies Allergies/Adverse Reactions: Allergies Allergy/AdvReac Type Severity Reaction Status Date / Time NSAIDS (Non-Steroidal Allergy Rash Verified 05/26/17 07:25 Anti-Inflamma povidone-iodine Allergy Rash Verified 05/26/17 07:25 [From Betadine] soap [From Betadine] Allergy Rash Verified 05/26/17 07:25 valdecoxib [From Bextra] Allergy Unknown Verified 05/26/17 07:25 ezetimibe [From Zetia] AdvReac Weakness, Verified 05/29/17 07:21 Nausea zolpidem [From Ambien] AdvReac Confusion Verified 05/29/17 07:21 - Blood Blood Available: No Product(s) Available: None - Anesthesia Plan Pre-Op Medication Ordered: None Med Last Dose Date: 10/16/17 Med Last Dose Time: 06:30 - Acknowledgements Anesthesia Type Planned: Spinal Pt an Appropriate Candidate for the Planned Anesthesia: Yes Alternatives and Risks of Anesthesia Discussed w Pt/Guardian: Yes Pt/Guardian Understands and Agrees with Anesthesia Plan: Yes PreAnesthesia Questionnaire HEENT History: Reports: Allergic Rhinitis Cardiovascular History: Reports: CAD, High Cholesterol, Hypertension Other Cardiovascular History: Generalized Atherosclerosis Gastrointestinal History: Reports: GERD Other Gastrointestinal History: Change in Bowel Habit Hx. Genitourinary History: Reports: Other (See Below) Other Genitourinary History: Increased Creatinine, Hyperurcemia, Hypognadism, Slow Stream Musculoskeletal History: Reports: Osteoarthritis, SLE Other Musculoskeletal History: SI Joint Pain, Left Foot Pain, Deformity of Right Foot Neurological History: Reports: Other (See Below) Other Neuro History: Tremor, Neuropathy Psychiatric History: Reports: Depression, Other (See Below) Other Psychiatric History: Patient states he has occassional depression, but denies depresion at this time. Patient also has history of fatigue. Other Hematologic History: Leukopenia - Past Surgical History Other HEENT Surgeries/Procedures: Patient wears glasses. Cardiovascular Surgical History: Reports: Carotid Endarterectomy, Coronary Artery Stent GI Surgical History: Reports: None Male Surgical History: Reports: None Neurological Surgical History: Reports: Lumbar Spine Musculoskeletal Surgical History: Reports: Knee Replacement, Shoulder Surgery, Other (See Below) Other Musculoskeletal Surgeries/Procedures:: Left Rotator Cuff Repair, Left Total Knee Arthroplasty - SUBSTANCE USE Smoking Status *Q: Former Smoker Tobacco Use Within Last Twelve Months: Snuff/Dip Days Per Week of Alcohol Use: 0 Recreational Drug Use History: No - HOME MEDS Home Medications: Home Meds Allopurinol [Zyloprim] 300 mg PO DAILY 05/26/17 [History] Aspirin 325 mg PO DAILY 05/26/17 [History] Nebivolol [Bystolic] 5 mg PO DAILY 05/26/17 [History] Testosterone Cypionate [Depo-Testosterone] 1 ampule IM ASDIRECTED 05/26/17 [ History] Triamterene/Hydrochlorothiazid [Triamterene-HCTZ 37.5-25 MG] 1 tab PO DAILY [History] Ubidecarenone [Co Q-10] 100 mg PO DAILY 05/26/17 [History] atorvaSTATin [Lipitor] 20 mg PO DAILY 05/26/17 [History] - CURRENT (IN HOUSE) MEDS Current Meds: Current Medications Aspirin (Ecotrin) 325 mg PO BID VITALY Docusate Sodium (Colace) 100 mg PO BID VITALY Famotidine (Pepcid) 20 mg PO Q12H VITALY Lactated Ringer's (Ringers, Lactated) 1,000 mls @ 125 mls/hr IV ASDIRECTED VITALY Cefazolin Sodium/Dextrose 2 gm (/ Premix) 50 mls @ 100 mls/hr IV Q8H [facility] Stop: 10/16/17 23:14 Lidocaine/Sodium Bicarbonate (Buffered Lidocaine 1% In Ns 8.4%) 0.25 ml IDERM ONETIME PRN PRN Reason: Prior to IV Start Morphine Sulfate (Morphine) 2 mg IVPUSH Q2H PRN PRN Reason: Breakthrough Pain Naloxone HCl (Narcan) 0.1 mg IVPUSH Q5M PRN PRN Reason: Oversedation Ondansetron HCl (Zofran) 4 mg IVPUSH Q6H PRN PRN Reason: Nausea/Vomiting Sodium Chloride (Saline Flush) 10 ml FLUSH ASDIRECTED PRN PRN Reason: Keep Vein Open Tramadol HCl (Ultram) 50 - 100 mg PO Q4H PRN PRN Reason: Pain Discontinued Medications Bupivacaine HCl (Sensorcaine-Mpf 0.75%) Confirm Administered Dose 30 ml .ROUTE .STK-MED ONE Stop: 10/16/17 08:59 Cefazolin Sodium (Ancef) Confirm Administered Dose 2 gm .ROUTE .STK-MED ONE Stop: 10/16/17 08:59 Morphine Sulfate 8 mg/Epinephrine HCl 0.3 mg/Cefuroxime Sodium 750 mg/Ketorolac Tromethamine 30 mg/Sodium Chloride 27.9 ml 0 mg .XX ONETIME ONE Stop: 10/16/17 06:46 Morphine Sulfate 8 mg/Epinephrine HCl 0.3 mg/Cefuroxime Sodium 750 mg/Sodium Chloride 28.9 ml 0 mg .XX ONETIME ONE Stop: 10/16/17 06:46 Morphine Sulfate (Duramorph Pf) Confirm Administered Dose 10 mg .ROUTE .STK-MED ONE Stop: 10/16/17 09:00 Propofol (Diprivan 20 Ml) Confirm Administered Dose 600 mg .ROUTE .STK-MED ONE Stop: 10/16/17 08:59
[2017-10-16] MEDS ORDERED: Vancomycin 1 GM SDV ONE (09:34)
[2017-10-16] MEDS ORDERED: Bupivacaine 0.25% 30 ML SDV ONE (09:34)
[2017-10-16] MEDS ORDERED: Lactated Ringers 1,000 ML ONE ×2 (10:26→11:30)
[2017-10-16] MEDS ORDERED: Morphine 4 MG/ML Syringe IVPUSH PRN (10:27)
[2017-10-16] MEDS ORDERED: Phenylephrine/Normal Saline 100 MCG/ML 10 ML Syringe ONE ×2 (10:27→11:19)
--- NOTE | 2017-10-16 11:59 | PCM.POSTAN ---
POST ANESTHESIA ASSESSMENT - MENTAL STATUS Mental Status: Alert, Oriented - VITAL SIGNS Pulse Rate: 60 SaO2: 97 Resp Rate: 16 Blood Pressure: 95/60 Temperature: 36.4 C - RESPIRATORY Respiratory Status: Respiratory Rate WNL, Airway Patent, O2 Saturation Stable, Supplemental Oxygen - CARDIOVASCULAR CV Status: Pulse Rate WNL - GASTROINTESTINAL GI Status: No Symptoms - PAIN Pain Score: 0 - POST OP HYDRATION Hydration Status: Adequate & Stable
[2017-10-16] MEDS ORDERED: fentaNYL 100 MCG/2 ML SDV IVPUSH PRN (12:00)
[2017-10-16] MEDS ORDERED: diphenhydrAMINE 50 MG/ML SDV IVPUSH PRN (12:00)
--- NOTE | 2017-10-16 12:47 | CR ---
Pelvis and right hip: AP view of the pelvis was obtained as well as lateral view of the right hip. Comparison: Previous right hip study of 05/29/17. Right hip prosthesis is noted. Joint space within the left hip is preserved. Sacroiliac joints are within normal limits. No fracture or other abnormality is seen. Impression: 1. Recently placed right hip prosthesis. 2. AP pelvis and right hip study is otherwise unremarkable. Diagnostic code #2
--- NOTE | 2017-10-16 13:46 | PCM.CONS ---
H&P History of Present Illness - General Date of Service: 10/16/17 Admit Problem/Dx: Admission Diagnosis/Problem Admission Diagnosis/Problem Osteoarthritis of hip Source of Information: Patient, Old Records, Provider History Limitations: Reports: No Limitations - History of Present Illness Initial Comments - Free Text/Narative: Tao is a 72 yo male patient of Dr. Gaffney who is post-operative day 0 of right PRECIOUS. Hospital medicine was consulted for post-operative medical care. At this time he is stable. Pain is controlled. He denies any chest pain, shortness of breath, palpitations, nausea, or vomiting. He carries a history of: CAD with stent, osteoarthritis, HLD, HTN, GERD, OA, SLE, leukopenia, CKD. He is a former smoker. He is a full code.His primary care provider is Pedro Pantoja. Right Hip Pain Score (Numeric/FACES): 2 - Related Data Allergies/Adverse Reactions: Allergies Allergy/AdvReac Type Severity Reaction Status Date / Time NSAIDS (Non-Steroidal Allergy Rash Verified 05/26/17 07:25 Anti-Inflamma povidone-iodine Allergy Rash Verified 05/26/17 07:25 [From Betadine] soap [From Betadine] Allergy Rash Verified 05/26/17 07:25 valdecoxib [From Bextra] Allergy Unknown Verified 05/26/17 07:25 ezetimibe [From Zetia] AdvReac Weakness, Verified 05/29/17 07:21 Nausea zolpidem [From Ambien] AdvReac Confusion Verified 05/29/17 07:21 Home Medications: Home Meds Allopurinol [Zyloprim] 300 mg PO DAILY 05/26/17 [History] Nebivolol [Bystolic] 5 mg PO DAILY 05/26/17 [History] Testosterone Cypionate [Depo-Testosterone] 200 mg IM ASDIRECTED 05/26/17 [ History] Triamterene/Hydrochlorothiazid [Triamterene-HCTZ 37.5-25 MG] 1 tab PO DAILY [History] Ubidecarenone [Co Q-10] 100 mg PO DAILY 05/26/17 [History] atorvaSTATin [Lipitor] 20 mg PO DAILY 05/26/17 [History] Acetaminophen/HYDROcodone [Lena 325-5 MG] 1 - 2 tab PO Q6H PRN #40 tablet 10/17 [Rx] Aspirin [Ecotrin] 325 mg PO BID #84 tab.ec 10/17/17 [Rx] Docusate Sodium [Colace] 100 mg PO BID cap 10/17/17 [Rx] Famotidine [Pepcid] 20 mg PO Q12H tablet 10/17/17 [Rx] Past Medical History HEENT History: Reports: Allergic Rhinitis Cardiovascular History: Reports: CAD, High Cholesterol, Hypertension Other Cardiovascular History: Generalized Atherosclerosis Gastrointestinal History: Reports: GERD Other Gastrointestinal History: Change in Bowel Habit Hx. Genitourinary History: Reports: Other (See Below) Other Genitourinary History: Increased Creatinine, Hyperurcemia, Hypognadism, [place] Musculoskeletal History: Reports: Osteoarthritis, SLE Other Musculoskeletal History: SI Joint Pain, Left Foot Pain, Deformity of Right Foot Neurological History: Reports: Other (See Below) Other Neuro History: Tremor, Neuropathy Psychiatric History: Reports: Depression, Other (See Below) Other Psychiatric History: Patient states he has occassional depression, but denies depresion at this time. Patient also has history of fatigue. Other Hematologic History: Leukopenia Immunologic History: Reports: None - Infectious Disease History Infectious Disease History: Reports: Other (See Below) Other Infectious Disease History: unknown - Past Surgical History Other HEENT Surgeries/Procedures: Patient wears glasses. Cardiovascular Surgical History: Reports: Carotid Endarterectomy, Coronary Artery Stent GI Surgical History: Reports: Colonoscopy, EGD Male Surgical History: Reports: None Neurological Surgical History: Reports: Lumbar Spine Musculoskeletal Surgical History: Reports: Knee Replacement, Shoulder Surgery, Other (See Below) Other Musculoskeletal Surgeries/Procedures:: Left Rotator Cuff Repair, bilateral Knee Arthroplasty Social & Family History - Family History Family Medical History: Noncontributory - Tobacco Use Smoking Status *Q: Former Smoker Years of Tobacco use: 43 Packs/Tins Daily: 0.5 Used Tobacco, but Quit: No - Caffeine Use Caffeine Use: Reports: Coffee - Alcohol Use Days Per Week of Alcohol Use: 0 - Recreational Drug Use Recreational Drug Use: No Drug Use in Last 12 Months: No H&P Review of Systems - Review of Systems: Review Of Systems: See Below General: Reports: No Symptoms. Denies: Fever, Chills HEENT: Reports: No Symptoms Pulmonary: Reports: No Symptoms. Denies: Shortness of Breath, Wheezing, Pleuritic Chest Pain, Cough Cardiovascular: Reports: No Symptoms. Denies: Chest Pain, Palpitations, Dyspnea on Exertion Gastrointestinal: Reports: No Symptoms. Denies: Abdominal Pain, Diarrhea, Nausea, Vomiting Genitourinary: Reports: No Symptoms. Denies: Dysuria, Frequency, Burning, Pain Musculoskeletal: Reports: Joint Pain (s/p R PRECIOUS) Skin: Reports: No Symptoms Psychiatric: Reports: No Symptoms Neurological: Reports: No Symptoms Hematologic/Lymphatic: Reports: No Symptoms Immunologic: Reports: No Symptoms Exam - Exam Exam: See Below - Vital Signs Vital Signs: Last Vital Signs Temp 98.2 F 10/16/17 12:45 Pulse 60 10/16/17 11:59 Resp 10 L 10/16/17 12:45 BP 123/69 10/16/17 12:45 Pulse Ox 97 10/16/17 13:24 Weight: 191 lb 12.835 oz - Exam Quality Assessment: Urinary Catheter, DVT Prophylaxis General: Alert, Oriented, Cooperative HEENT: Conjunctiva Clear, EACs Clear, EOMI, Hearing Intact, Mucosa Moist & [place] , Nares Patent, Normal Nasal Septum, Posterior Pharynx Clear, PERRLA Neck: Supple, Trachea Midline, 2 Lungs: Clear to Auscultation, Normal Respiratory Effort Cardiovascular: Regular Rate, Regular Rhythm GI/Abdominal Exam: Normal Bowel Sounds, Soft, Non-Tender, No Organomegaly, No Distention, No Abnormal Bruit, No Mass, Pelvis Stable (Male) Exam: Deferred Rectal (Males) Exam: Deferred Back Exam: Normal Inspection, Full Range of Motion, NT Extremities: Normal Inspection, Non-Tender, No Pedal Edema, Normal Capillary Refill, Limited Range of Motion (s/p R PRECIOUS) Peripheral Pulses: 1+: Posterior Tibial (L), Posterior Tibial (R), Dorsalis Pedis (L), Dorsalis Pedis (R) Skin: Warm, Dry, Intact Neurological: Cranial Nerves Intact (grossly) Neuro Extensive - Mental Status: Alert, Oriented x3, Normal Mood/Affect, Normal Cognition Neuro Extensive - Motor, Sensory, Reflexes: Abnormal Gait (s/p R PRECIOUS) Psychiatric: Alert, Normal Affect, Normal Mood - Patient Data Lab Results Last 24 hrs: Laboratory Results - last 24 hr 10/16/17 Range/Units 09:11 Blood Type A NEGATIVE Gel Antibody Screen Negative Result Diagrams: 10/17/17 05:35 10/17/17 05:35 Consult PN Assessment/Plan POD#: 0 Procedures: Procedures COMPLETE CBC W/AUTO DIFF WBC (05/29/17) COMPREHEN METABOLIC PANEL (05/29/17) DRAIN/INJ JOINT/BURSA W/O US (05/30/17) GAIT TRAINING THERAPY (05/29/17) MR-STAPH DNA AMP PROBE (05/29/17) OT EVAL MOD COMPLEX 45 MIN (05/29/17) PT EVAL LOW COMPLEX 20 MIN (05/29/17) ROUTINE VENIPUNCTURE (05/29/17) SELF CARE MNGMENT TRAINING (05/29/17) THERAPEUTIC EXERCISES (05/29/17) X-RAY EXAM HIP UNI 2-3 VIEWS (05/29/17) X-RAY EXAM OF KNEE 1 OR 2 (05/29/17) (1) Status post total hip replacement, right SNOMED Code(s): 751115383277, 233445198813 Code(s): Z96.641 - PRESENCE OF RIGHT ARTIFICIAL HIP JOINT Priority: High Current Visit: Yes (2) Stented coronary artery Priority: Low Current Visit: Yes (3) GERD (gastroesophageal reflux disease) SNOMED Code(s): 858262076 Code(s): K21.9 - GASTRO-ESOPHAGEAL REFLUX DISEASE WITHOUT ESOPHAGITIS Priority: Low Current Visit: Yes Qualifiers: Esophagitis presence: esophagitis presence not specified Qualified Code(s) : K21.9 - Gastro-esophageal reflux disease without esophagitis (4) Leukopenia SNOMED Code(s): 03733339, 033486177 Code(s): D72.819 - DECREASED WHITE BLOOD CELL COUNT, UNSPECIFIED Priority: Medium Current Visit: No Qualifiers: Neutropenia type: unspecified (5) CAD (coronary artery disease) SNOMED Code(s): 04978511 Code(s): I25.10 - ATHSCL HEART DISEASE OF [place] CORONARY ARTERY W/O ANG PCTRS Priority: Medium Current Visit: No Qualifiers: Coronary Disease-Associated Artery/Lesion type: unspecified vessel or lesion type [place] vs. transplanted heart: [place] heart Associated angina: without angina Qualified Code(s): I25.10 - Atherosclerotic heart disease of [place] coronary artery without angina pectoris (6) CKD (chronic kidney disease) SNOMED Code(s): 746397194 Code(s): N18.9 - CHRONIC KIDNEY DISEASE, UNSPECIFIED Priority: Medium Current Visit: No Qualifiers: Chronic kidney disease stage: unspecified stage Qualified Code(s): N18.9 - Chronic kidney disease, unspecified (7) HLD (hyperlipidemia) SNOMED Code(s): 39429164 Code(s): E78.5 - HYPERLIPIDEMIA, UNSPECIFIED Priority: Medium Current Visit: No Qualifiers: Hyperlipidemia type: unspecified Qualified Code(s): E78.5 - Hyperlipidemia , unspecified (8) HTN (hypertension) SNOMED Code(s): 54172423 Code(s): I10 - ESSENTIAL (PRIMARY) HYPERTENSION Priority: Medium Current Visit: No Qualifiers: Hypertension type: essential hypertension Qualified Code(s): I10 - Essential (primary) hypertension (9) Osteoarthritis SNOMED Code(s): 941587555 Code(s): M19.90 - UNSPECIFIED OSTEOARTHRITIS, UNSPECIFIED SITE Priority: High Current Visit: Yes Qualifiers: Osteoarthritis location: hip Osteoarthritis type: primary Laterality: right Qualified Code(s): M16.11 - Unilateral primary osteoarthritis, right hip (10) Peripheral neuropathy SNOMED Code(s): 108867344 Code(s): G62.9 - POLYNEUROPATHY, UNSPECIFIED Priority: Medium Current Visit: No Qualifiers: Peripheral neuropathy type: polyneuropathy, unspecified Qualified Code(s): G62.9 - Polyneuropathy, unspecified (11) SLE (systemic lupus erythematosus) SNOMED Code(s): 17867636 Code(s): M32.9 - SYSTEMIC LUPUS ERYTHEMATOSUS, UNSPECIFIED Priority: Medium Current Visit: No Qualifiers: Systemic lupus erythematosus type: unspecified Systemic lupus erythematosus organ involvement: unspecified Qualified Code(s): M32.9 - Systemic lupus erythematosus, unspecified Problem List Initiated/Reviewed/Updated: Yes Plan: I/P: Acute: S/P right total hip arthroplasty - post-operative day 0 -DVT prophylaxis and pain management per primary care team -PT/OT -IS/RT -Monitor oxygen saturation -Titrate oxygen as needed -Vital signs stable -Monitor labs Chronic: CAD with stent OA HLD HTN GERD SLE Leukopenia CKD Plan: CM for discharge planning GI prophylaxis: Pepcid DVT/PE prophylaxis: MARCO peña, SCD, ASA Home medications as indicated Other orders as listed above Routine AM labs He is a full code. His PCP is Pedro Pantoja. Thank you for allowing us to participate in the care of this patient!!
[2017-10-16] MEDS ORDERED: Calcium Carbonate 500 MG Tab.Chew PO PRN (20:00)
[2017-10-16] MEDS ORDERED: Calcium Carbonate 500 MG Tab.Chew ONE (20:27)
[2017-10-16] MEDS: Docusate Sodium 100 MG Cap PO SCH (21:25)
[2017-10-16] MEDS: Famotidine 20 MG Tab PO SCH (21:25)
[2017-10-17] MEDS: Acetaminophen/HYDROcodone 325-5 MG Tab PO PRN ×2 (03:59→09:37)
[2017-10-17] MEDS: ceFAZolin 2 GM in Premix Bag 1 BAG IV SCH ×2 (04:14→08:42)
--- NOTE | 2017-10-17 06:37 | PCM.CONSN ---
- General Info Date of Service: 10/17/17 Admission Dx/Problem (Free Text): Admission Diagnosis/Problem Admission Diagnosis/Problem Osteoarthritis of hip Functional Status: Reports: Pain Controlled, Tolerating Diet, Ambulating, Urinating, Incentive Spirometry. Denies: New Symptoms - Review of Systems General: Reports: No Symptoms HEENT: Reports: No Symptoms Pulmonary: Reports: No Symptoms Cardiovascular: Reports: No Symptoms Gastrointestinal: Reports: No Symptoms Genitourinary: Reports: No Symptoms Musculoskeletal: Reports: Leg Pain Skin: Reports: No Symptoms Neurological: Reports: No Symptoms Psychiatric: Reports: No Symptoms - Patient Data Vitals - Most Recent: Last Vital Signs Temp 98.8 F 10/17/17 04:03 Pulse 78 10/17/17 04:03 Resp 18 10/17/17 04:03 BP 132/82 10/17/17 04:03 Pulse Ox 98 10/17/17 04:03 Weight - Most Recent: 191 lb 12.835 oz I&O - Last 24 Hours: Intake & Output 10/16/17 10/16/17 10/17/17 14:59 22:59 06:59 Intake Total 300 0 2650 Output Total 400 780 Balance -100 0 1870 Lab Results Last 24 Hours: Laboratory Results - last 24 hr 10/16/17 10/17/17 Range/Units 09:11 05:35 WBC 7.93 (4.23-9.07) K/mm3 RBC 4.57 L (4.63-6.08) M/mm3 Hgb 13.2 L (13.7-17.5) gm/L Hct 39.7 L (40.1-51.0) % MCV 86.9 (79.0-92.2) fl MCH 28.9 (25.7-32.2) pg MCHC 33.2 (32.2-35.5) g/dl RDW Std Deviation 42.6 (35.1-43.9) fL Plt Count 230 (163-337) K/mm3 MPV 10.2 (9.4-12.3) fl Blood Type A NEGATIVE Gel Antibody Screen Negative Med Orders - Current: Current Medications Hydrocodone Bitart/Acetaminophen ([place] 325-5 Mg) 1 - 2 tab PO Q4H PRN PRN Reason: Pain Last Admin: 10/17/17 03:59 Dose: 2 tab Allopurinol (Zyloprim) 300 mg PO DAILY [facility] Aspirin (Ecotrin) 325 mg PO BID [facility] Calcium Carbonate/Glycine (Tums) 500 mg PO Q2H PRN PRN Reason: INDIGESTION Carvedilol (Coreg) 3.125 mg PO BID [facility] Docusate Sodium (Colace) 100 mg PO BID [facility] Last Admin: 10/16/17 21:25 Dose: 100 mg Famotidine (Pepcid) 20 mg PO Q12H [facility] Last Admin: 10/16/17 21:25 Dose: 20 mg Cefazolin Sodium/Dextrose 2 gm (/ Premix) 50 mls @ 100 mls/hr IV Q8H [facility] Stop: 10/17/17 09:59 Last Admin: 10/17/17 04:14 Dose: Not Given Morphine Sulfate (Morphine) 2 mg IVPUSH Q2H PRN PRN Reason: Breakthrough Pain Testosterone Cypionate [Depo- Testosterone] Patient's Ow 1 ampule IM ASDIRECTED [facility] Ondansetron HCl (Zofran) 4 mg IVPUSH Q6H PRN PRN Reason: Nausea/Vomiting Simvastatin (Zocor) 20 mg PO BEDTIME [facility] Sodium Chloride (Saline Flush) 10 ml FLUSH ASDIRECTED PRN PRN Reason: Keep Vein Open Triamterene/HCTZ (Dyazide 25-37.5 Mg) 1 each PO DAILY [facility] Discontinued Medications Bupivacaine HCl (Sensorcaine-Mpf 0.75%) Confirm Administered Dose 30 ml .ROUTE .STK-MED ONE Stop: 10/16/17 08:59 Bupivacaine HCl (Marcaine 0.25%) Confirm Administered Dose 30 ml .ROUTE .STK- MED ONE Stop: 10/16/17 09:35 Last Admin: 10/16/17 11:21 Dose: 30 ml Calcium Carbonate/Glycine (Tums) Confirm Administered Dose 500 mg .ROUTE .STK- MED ONE Stop: 10/16/17 20:28 Last Admin: 10/17/17 03:32 Dose: Not Given Cefazolin Sodium (Ancef) Confirm Administered Dose 2 gm .ROUTE .STK-MED ONE Stop: 10/16/17 08:59 Last Admin: 10/16/17 11:14 Dose: 2 gm Cefazolin Sodium (Ancef) Confirm Administered Dose 2 gm .ROUTE .STK-MED ONE Stop: 10/16/17 09:35 Morphine Sulfate 8 mg/Epinephrine HCl 0.3 mg/Cefuroxime Sodium 750 mg/Ketorolac Tromethamine 30 mg/Sodium Chloride 27.9 ml 0 mg .XX ONETIME ONE Stop: 10/16/17 06:46 Last Admin: 10/17/17 04:23 Dose: Not Given Morphine Sulfate 8 mg/Epinephrine HCl 0.3 mg/Cefuroxime Sodium 750 mg/Sodium Chloride 28.9 ml 0 mg .XX ONETIME ONE Stop: 10/16/17 06:46 Last Admin: 10/16/17 11:20 Dose: 758.3 mg Diphenhydramine HCl (Benadryl) 25 mg IVPUSH Q6H PRN PRN Reason: itching Stop: 10/16/17 14:30 Fentanyl (Sublimaze) 50 mcg IVPUSH Q5M PRN PRN Reason: pain Stop: 10/16/17 14:30 Lactated Ringer's (Ringers, Lactated) 1,000 mls @ 125 mls/hr IV ASDIRECTED [facility] Last Admin: 10/16/17 09:15 Dose: 125 mls/hr Lactated Ringer's (Ringers, Lactated) Confirm Administered Dose 1,000 mls @ as directed .ROUTE .STK-MED ONE Stop: 10/16/17 10:27 Lactated Ringer's (Ringers, Lactated) Confirm Administered Dose 1,000 mls @ as directed .ROUTE .STK-MED ONE Stop: 10/16/17 11:31 Lidocaine HCl (Xylocaine-Mpf 1%) 5 ml .ROUTE .STK-MED ONE Stop: 10/16/17 09:01 Lidocaine/Sodium Bicarbonate (Buffered Lidocaine 1% In Ns 8.4%) 0.25 ml IDERM ONETIME PRN PRN Reason: Prior to IV Start Last Admin: 10/16/17 09:14 Dose: 0.25 ml Morphine Sulfate (Morphine) 2 mg IVPUSH Q2H PRN PRN Reason: Breakthrough Pain Morphine Sulfate (Duramorph Pf) Confirm Administered Dose 10 mg .ROUTE .STK-MED ONE Stop: 10/16/17 09:00 Naloxone HCl (Narcan) 0.1 mg IVPUSH Q5M PRN PRN Reason: Oversedation Non-Formulary Medication (Ubidecarenone) 100 mg PO DAILY [facility] Phenylephrine HCl (Phenylephrine In Ns 100 Mcg/Ml) Confirm Administered Dose 1 mg .ROUTE .STK-MED ONE Stop: 10/16/17 10:28 Phenylephrine HCl (Phenylephrine In Ns 100 Mcg/Ml) Confirm Administered Dose 1 mg .ROUTE .STK-MED ONE Stop: 10/16/17 11:20 Propofol (Diprivan 20 Ml) Confirm Administered Dose 600 mg .ROUTE .STK-MED ONE Stop: 10/16/17 08:59 Tramadol HCl (Ultram) 50 - 100 mg PO Q4H PRN PRN Reason: Pain Tranexamic Acid (Cyklokapron) Confirm Administered Dose 1,000 mg .ROUTE .STK- MED ONE Stop: 10/16/17 09:35 Last Admin: 10/16/17 11:23 Dose: 1,000 mg Vancomycin HCl (Vancomycin) Confirm Administered Dose 1 gm .ROUTE .STK-MED ONE Stop: 10/16/17 09:35 Last Admin: 10/16/17 11:22 Dose: 1 gm - Exam Quality Assessment: DVT Prophylaxis General: Alert, Oriented, Cooperative, No Acute Distress HEENT: Pupils Equal, Pupils Reactive, EOMI, Mucous Membr. Moist/[place] Neck: Supple, Trachea Midline, No JVD Lungs: Clear to Auscultation, Normal Respiratory Effort Cardiovascular: Regular Rate, Regular Rhythm GI/Abdominal Exam: Normal Bowel Sounds, Soft, Non-Tender, No Organomegaly, No Distention, No Abnormal Bruit, No Mass, Pelvis Stable (Male) Exam: Deferred Back Exam: Normal Inspection, Full Range of Motion Extremities: No Pedal Edema, Normal Capillary Refill, Leg Pain, Limited Range of Motion, Other (DORIS bandage in place on right leg. Cooling pack in place ) Peripheral Pulses: 2+: Radial (L), Radial (R), Posterior Tibial (L), Posterior Tibial (R), Dorsalis Pedis (L), Dorsalis Pedis (R) Skin: Warm, Dry, Intact Wound/Incisions: Dressing Dry and Intact, No Drainage Neurological: No New Focal Deficit Psy/Mental Status: Alert, Normal Affect, Normal Mood Consult PN Assessment/Plan POD#: 1 Procedures: Procedures COMPLETE CBC W/AUTO DIFF WBC (05/29/17) COMPREHEN METABOLIC PANEL (05/29/17) DRAIN/INJ JOINT/BURSA W/O US (05/30/17) GAIT TRAINING THERAPY (05/29/17) MR-STAPH DNA AMP PROBE (05/29/17) OT EVAL MOD COMPLEX 45 MIN (05/29/17) PT EVAL LOW COMPLEX 20 MIN (05/29/17) ROUTINE VENIPUNCTURE (05/29/17) SELF CARE MNGMENT TRAINING (05/29/17) THERAPEUTIC EXERCISES (05/29/17) X-RAY EXAM HIP UNI 2-3 VIEWS (05/29/17) X-RAY EXAM OF KNEE 1 OR 2 (05/29/17) (1) Status post total hip replacement, right SNOMED Code(s): 663489161191, 489045705571 Code(s): Z96.641 - PRESENCE OF RIGHT ARTIFICIAL HIP JOINT Priority: High Current Visit: Yes (2) Osteoarthritis SNOMED Code(s): 469028963 Code(s): M19.90 - UNSPECIFIED OSTEOARTHRITIS, UNSPECIFIED SITE Priority: High Current Visit: Yes Qualifiers: Osteoarthritis location: hip Osteoarthritis type: primary Laterality: right Qualified Code(s): M16.11 - Unilateral primary osteoarthritis, right hip (3) GERD (gastroesophageal reflux disease) SNOMED Code(s): 089691027 Code(s): K21.9 - GASTRO-ESOPHAGEAL REFLUX DISEASE WITHOUT ESOPHAGITIS Priority: Low Current Visit: Yes Qualifiers: Esophagitis presence: esophagitis presence not specified Qualified Code(s) : K21.9 - Gastro-esophageal reflux disease without esophagitis (4) Stented coronary artery Priority: Low Current Visit: Yes (5) CAD (coronary artery disease) SNOMED Code(s): 77640015 Code(s): I25.10 - ATHSCL HEART DISEASE OF [place] CORONARY ARTERY W/O ANG PCTRS Priority: Medium Current Visit: No Qualifiers: Coronary Disease-Associated Artery/Lesion type: unspecified vessel or lesion type [place] vs. transplanted heart: [place] heart Associated angina: without angina Qualified Code(s): I25.10 - Atherosclerotic heart disease of [place] coronary artery without angina pectoris (6) CKD (chronic kidney disease) SNOMED Code(s): 670487926 Code(s): N18.9 - CHRONIC KIDNEY DISEASE, UNSPECIFIED Priority: Medium Current Visit: No Qualifiers: Chronic kidney disease stage: unspecified stage Qualified Code(s): N18.9 - Chronic kidney disease, unspecified (7) Carotid artery disease SNOMED Code(s): 269665231 Code(s): I77.9 - DISORDER OF ARTERIES AND ARTERIOLES, UNSPECIFIED Priority : Medium Current Visit: No Qualifiers: Laterality: left Qualified Code(s): I77.9 - Disorder of arteries and arterioles, unspecified (8) Chronic low back pain SNOMED Code(s): 117043843 Code(s): M54.5 - LOW BACK PAIN; G89.29 - OTHER CHRONIC PAIN Priority: Medium Current Visit: No Qualifiers: Back pain laterality: unspecified Sciatica presence: unspecified whether sciatica present Qualified Code(s): M54.5 - Low back pain; G89.29 - Other chronic pain (9) HLD (hyperlipidemia) SNOMED Code(s): 32775314 Code(s): E78.5 - HYPERLIPIDEMIA, UNSPECIFIED Priority: Medium Current Visit: No Qualifiers: Hyperlipidemia type: unspecified Qualified Code(s): E78.5 - Hyperlipidemia , unspecified (10) HTN (hypertension) SNOMED Code(s): 83605933 Code(s): I10 - ESSENTIAL (PRIMARY) HYPERTENSION Priority: Medium Current Visit: No Qualifiers: Hypertension type: essential hypertension Qualified Code(s): I10 - Essential (primary) hypertension (11) Leukopenia SNOMED Code(s): 99725987, 327469527 Code(s): D72.819 - DECREASED WHITE BLOOD CELL COUNT, UNSPECIFIED Priority: Medium Current Visit: No Qualifiers: Neutropenia type: unspecified (12) Peripheral neuropathy SNOMED Code(s): 584554253 Code(s): G62.9 - POLYNEUROPATHY, UNSPECIFIED Priority: Medium Current Visit: No Qualifiers: Peripheral neuropathy type: polyneuropathy, unspecified Qualified Code(s): G62.9 - Polyneuropathy, unspecified (13) SLE (systemic lupus erythematosus) SNOMED Code(s): 94902370 Code(s): M32.9 - SYSTEMIC LUPUS ERYTHEMATOSUS, UNSPECIFIED Priority: Medium Current Visit: No Qualifiers: Systemic lupus erythematosus type: unspecified Systemic lupus erythematosus organ involvement: unspecified Qualified Code(s): M32.9 - Systemic lupus erythematosus, unspecified Problem List Initiated/Reviewed/Updated: Yes Plan: I/P: Acute: S/P right total hip arthroplasty - post-operative day 0 -DVT prophylaxis and pain management per primary care team -PT/OT -IS/RT -Monitor oxygen saturation -Titrate oxygen as needed -Vital signs stable -Monitor labs -Hgb 13.2, creatinine 1.3, eGFR 55, electrolytes good today Osteoarthritis -Pain management per the primary team Chronic: CAD with stent HLD HTN GERD SLE Leukopenia CKD Plan: CM for discharge planning GI prophylaxis: Pepcid DVT/PE prophylaxis: MARCO peña, SCD, ASA Home medications as indicated Other orders as listed above Routine AM labs He is a full code. His PCP is Pedro Pantoja. From a hospitalist standpoint Tao is doing very well. He has urinated and has been ambulating. He has been working with PT/OT. He is cleared for discharge pending primary team agreement. There was some confusion as to the patients tobacco use. He reports he was a smoker in college and has not smoked since. Thank you for allowing us to participate in the care of this patient!!
--- NOTE | 2017-10-17 07:37 | PCM.SURGPN ---
- General Info Date of Service: 10/17/17 POD#: 1 Functional Status: Reports: Pain Controlled, Tolerating Diet, Ambulating, Urinating, Incentive Spirometry - Review of Systems Musculoskeletal: Reports: Other (The pt states he was able to ambulate in room and halls. ) - Patient Data Vitals - Most Recent: Last Vital Signs Temp 98.8 F 10/17/17 04:03 Pulse 78 10/17/17 04:03 Resp 18 10/17/17 04:03 BP 132/82 10/17/17 04:03 Pulse Ox 98 10/17/17 04:03 Weight - Most Recent: 191 lb 12.835 oz I&O - Last 24 Hours: Intake & Output 10/16/17 10/17/17 10/17/17 22:59 06:59 14:59 Intake Total 0 2650 Output Total 780 Balance 0 1870 Lab Results Last 24 Hrs: Laboratory Results - last 24 hr 10/16/17 10/17/17 10/17/17 Range/Units 09:11 05:35 05:35 WBC 7.93 (4.23-9.07) K/mm3 RBC 4.57 L (4.63-6.08) M/mm3 Hgb 13.2 L (13.7-17.5) gm/L Hct 39.7 L (40.1-51.0) % MCV 86.9 (79.0-92.2) fl MCH 28.9 (25.7-32.2) pg MCHC 33.2 (32.2-35.5) g/dl RDW Std Deviation 42.6 (35.1-43.9) fL Plt Count 230 (163-337) K/mm3 MPV 10.2 (9.4-12.3) fl Sodium 136 (136-145) mEq/L Potassium 3.7 (3.5-5.1) mEq/L Chloride 101 (98-107) mEq/L Carbon Dioxide 27 (21-32) mEq/L Anion Gap 11.7 (5-15) BUN 14 (7-18) mg/dL Creatinine 1.3 (0.7-1.3) mg/dL Est Cr Clr Drug Dosing 56.31 mL/min Estimated GFR (MDRD) 55 (>60) mL/min BUN/Creatinine Ratio 10.8 L (14-18) Glucose 115 (80-115) mg/dL Calcium 8.5 (8.5-10.1) mg/dL Total Bilirubin 0.6 (0.2-1.0) mg/dL AST 35 (15-37) U/L ALT 28 (16-63) U/L Alkaline Phosphatase 55 (46-116) U/L Total Protein 6.4 (6.4-8.2) g/dl Albumin 3.1 L (3.4-5.0) g/dl Globulin 3.3 gm/dL Albumin/Globulin Ratio 0.9 L (1-2) Blood Type A NEGATIVE Gel Antibody Screen Negative Med Orders - Current: Current Medications Hydrocodone Bitart/Acetaminophen ([place] 325-5 Mg) 1 - 2 tab PO Q4H PRN PRN Reason: Pain Last Admin: 10/17/17 03:59 Dose: 2 tab Allopurinol (Zyloprim) 300 mg PO DAILY [facility] Aspirin (Ecotrin) 325 mg PO BID [facility] Calcium Carbonate/Glycine (Tums) 500 mg PO Q2H PRN PRN Reason: INDIGESTION Carvedilol (Coreg) 3.125 mg PO BID [facility] Docusate Sodium (Colace) 100 mg PO BID [facility] Last Admin: 10/16/17 21:25 Dose: 100 mg Famotidine (Pepcid) 20 mg PO Q12H [facility] Last Admin: 10/16/17 21:25 Dose: 20 mg Cefazolin Sodium/Dextrose 2 gm (/ Premix) 50 mls @ 100 mls/hr IV Q8H [facility] Stop: 10/17/17 09:59 Last Admin: 10/17/17 04:14 Dose: Not Given Morphine Sulfate (Morphine) 2 mg IVPUSH Q2H PRN PRN Reason: Breakthrough Pain Testosterone Cypionate [Depo- Testosterone] Patient's Ow 1 ampule IM ASDIRECTED [facility] Ondansetron HCl (Zofran) 4 mg IVPUSH Q6H PRN PRN Reason: Nausea/Vomiting Simvastatin (Zocor) 20 mg PO BEDTIME [facility] Sodium Chloride (Saline Flush) 10 ml FLUSH ASDIRECTED PRN PRN Reason: Keep Vein Open Triamterene/HCTZ (Dyazide 25-37.5 Mg) 1 each PO DAILY [facility] Discontinued Medications Bupivacaine HCl (Sensorcaine-Mpf 0.75%) Confirm Administered Dose 30 ml .ROUTE .STK-MED ONE Stop: 10/16/17 08:59 Bupivacaine HCl (Marcaine 0.25%) Confirm Administered Dose 30 ml .ROUTE .STK- MED ONE Stop: 10/16/17 09:35 Last Admin: 10/16/17 11:21 Dose: 30 ml Calcium Carbonate/Glycine (Tums) Confirm Administered Dose 500 mg .ROUTE .STK- MED ONE Stop: 10/16/17 20:28 Last Admin: 10/17/17 03:32 Dose: Not Given Cefazolin Sodium (Ancef) Confirm Administered Dose 2 gm .ROUTE .STK-MED ONE Stop: 10/16/17 08:59 Last Admin: 10/16/17 11:14 Dose: 2 gm Cefazolin Sodium (Ancef) Confirm Administered Dose 2 gm .ROUTE .STK-MED ONE Stop: 10/16/17 09:35 Morphine Sulfate 8 mg/Epinephrine HCl 0.3 mg/Cefuroxime Sodium 750 mg/Ketorolac Tromethamine 30 mg/Sodium Chloride 27.9 ml 0 mg .XX ONETIME ONE Stop: 10/16/17 06:46 Last Admin: 10/17/17 04:23 Dose: Not Given Morphine Sulfate 8 mg/Epinephrine HCl 0.3 mg/Cefuroxime Sodium 750 mg/Sodium Chloride 28.9 ml 0 mg .XX ONETIME ONE Stop: 10/16/17 06:46 Last Admin: 10/16/17 11:20 Dose: 758.3 mg Diphenhydramine HCl (Benadryl) 25 mg IVPUSH Q6H PRN PRN Reason: itching Stop: 10/16/17 14:30 Fentanyl (Sublimaze) 50 mcg IVPUSH Q5M PRN PRN Reason: pain Stop: 10/16/17 14:30 Lactated Ringer's (Ringers, Lactated) 1,000 mls @ 125 mls/hr IV ASDIRECTED [facility] Last Admin: 10/16/17 09:15 Dose: 125 mls/hr Lactated Ringer's (Ringers, Lactated) Confirm Administered Dose 1,000 mls @ as directed .ROUTE .STK-MED ONE Stop: 10/16/17 10:27 Lactated Ringer's (Ringers, Lactated) Confirm Administered Dose 1,000 mls @ as directed .ROUTE .STK-MED ONE Stop: 10/16/17 11:31 Lidocaine HCl (Xylocaine-Mpf 1%) 5 ml .ROUTE .STK-MED ONE Stop: 10/16/17 09:01 Lidocaine/Sodium Bicarbonate (Buffered Lidocaine 1% In Ns 8.4%) 0.25 ml IDERM ONETIME PRN PRN Reason: Prior to IV Start Last Admin: 10/16/17 09:14 Dose: 0.25 ml Morphine Sulfate (Morphine) 2 mg IVPUSH Q2H PRN PRN Reason: Breakthrough Pain Morphine Sulfate (Duramorph Pf) Confirm Administered Dose 10 mg .ROUTE .STK-MED ONE Stop: 10/16/17 09:00 Naloxone HCl (Narcan) 0.1 mg IVPUSH Q5M PRN PRN Reason: Oversedation Non-Formulary Medication (Ubidecarenone) 100 mg PO DAILY [facility] Phenylephrine HCl (Phenylephrine In Ns 100 Mcg/Ml) Confirm Administered Dose 1 mg .ROUTE .STK-MED ONE Stop: 10/16/17 10:28 Phenylephrine HCl (Phenylephrine In Ns 100 Mcg/Ml) Confirm Administered Dose 1 mg .ROUTE .STK-MED ONE Stop: 10/16/17 11:20 Propofol (Diprivan 20 Ml) Confirm Administered Dose 600 mg .ROUTE .STK-MED ONE Stop: 10/16/17 08:59 Tramadol HCl (Ultram) 50 - 100 mg PO Q4H PRN PRN Reason: Pain Tranexamic Acid (Cyklokapron) Confirm Administered Dose 1,000 mg .ROUTE .STK- MED ONE Stop: 10/16/17 09:35 Last Admin: 10/16/17 11:23 Dose: 1,000 mg Vancomycin HCl (Vancomycin) Confirm Administered Dose 1 gm .ROUTE .STK-MED ONE Stop: 10/16/17 09:35 Last Admin: 10/16/17 11:22 Dose: 1 gm - Exam Wound/Incisions: Dressing Dry and Intact General: Alert, Cooperative, No Acute Distress Lungs: Normal Respiratory Effort Extremities: Other (Cristobal's negative for RLE. Right thigh soft, nontender.) - Problem List Review Problem List Initiated/Reviewed/Updated: Yes - My Orders Last 24 Hours: Active Orders 24 hr Category Date Time Status Patient Status [ADT] Routine ADT 10/16/17 06:46 Active Ambulate [RC] ,,20 Care 10/16/17 06:46 Active May Shower [RC] ASDIRECTED Care 10/16/17 06:46 Active Notify Provider Consults [RC] ASDIRECTED Care 10/16/17 06:49 Active Notify Provider [RC] ASDIRECTED Care 10/16/17 12:00 Active Oxygen Therapy [RC] PRN Care 10/16/17 06:46 Active Pulse Oximetry [RC] ASDIRECTED Care 10/16/17 12:00 Active RT Incentive Spirometry [RC] Q1HWA Care 10/16/17 06:45 Active Ready for Discharge [RC] PER UNIT ROUTINE Care 10/17/17 07:35 Ordered Up to Chair [RC] , Care 10/16/17 06:46 Active Verify Patient Consent Obtain [RC] ASDIRECTED Care 10/16/17 07:00 Inactive Vital Signs [RC] Q4HR Care 10/16/17 06:46 Active Consult to Physician [CONS] Routine Cons 10/16/17 06:46 Active OT Evaluation and Treatment [CONS] Routine Cons 10/16/17 06:45 Active PT Evaluation and Treatment [CONS] Routine Cons 10/16/17 06:45 Active Regular Diet [DIET] Diet 10/16/17 Lunch Active PATIENT RETYPE [BBK] Routine Lab 10/16/17 09:11 Results TYPE AND SCREEN [BBK] Routine Lab 10/16/17 09:11 Results Acetaminophen/HYDROcodone [[place] 325-5 MG] Med 10/16/17 10:35 Active 1 - 2 tab PO Q4H PRN Allopurinol [Zyloprim] Med 10/17/17 09:00 Active 300 mg PO DAILY Aspirin [Ecotrin] Med 10/17/17 09:00 Active 325 mg PO BID Calcium Carbonate [Tums] Med 10/16/17 20:00 Active 500 mg PO Q2H PRN Carvedilol [Coreg] Med 10/17/17 09:00 Active 3.125 mg PO BID Docusate Sodium [Colace] Med 10/16/17 21:00 Active 100 mg PO BID Famotidine [Pepcid] Med 10/16/17 21:00 Active 20 mg PO Q12H HCTZ/Triamterene [Dyazide 25-37.5 MG] Med 10/17/17 09:00 Active 1 each PO DAILY [facility] Med 10/16/17 10:27 Active 2 mg IVPUSH Q2H PRN Ondansetron [Zofran] Med 10/16/17 06:46 Active 4 mg IVPUSH Q6H PRN Simvastatin [Zocor] Med 10/17/17 21:00 Active 20 mg PO BEDTIME Sodium Chloride 0.9% [Saline Flush] Med 10/16/17 07:00 Active 10 ml FLUSH ASDIRECTED PRN Testosterone Cypionate [Depo-Testosterone] Med 10/20/17 09:00 Active 1 ampule IM ASDIRECTED ceFAZolin [Ancef] 2 gm Med 10/16/17 17:30 Active Premix Bag 1 bag IV Q8H Antiembolic Hose [OM.PC] Per Unit Routine Oth 10/16/17 06:48 Ordered Hip Precautions Posterior [OM.PC] Routine Oth 10/16/17 06:45 Ordered Ice Therapy [OM.PC] Per Unit Routine Oth 10/16/17 06:47 Ordered Medication Administration Instruction [OM.PC] Routine Oth 10/16/17 07:00 Ordered Sequential Compression Device [OM.PC] Per Unit Routine Oth 10/16/17 06:45 Ordered Resuscitation Status Routine Resus Stat 10/16/17 06:46 Ordered Medication Orders Hydrocodone Bitart/Acetaminophen ([place] 325-5 Mg) 1 - 2 tab PO Q4H PRN PRN Reason: Pain Last Admin: 10/17/17 03:59 Dose: 2 tab Allopurinol (Zyloprim) 300 mg PO DAILY [facility] Aspirin (Ecotrin) 325 mg PO BID [facility] Calcium Carbonate/Glycine (Tums) 500 mg PO Q2H PRN PRN Reason: INDIGESTION Carvedilol (Coreg) 3.125 mg PO BID [facility] Docusate Sodium (Colace) 100 mg PO BID [facility] Last Admin: 10/16/17 21:25 Dose: 100 mg Famotidine (Pepcid) 20 mg PO Q12H [facility] Last Admin: 10/16/17 21:25 Dose: 20 mg Cefazolin Sodium/Dextrose 2 gm (/ Premix) 50 mls @ 100 mls/hr IV Q8H [facility] Stop: 10/17/17 09:59 Last Admin: 10/17/17 04:14 Dose: Not Given Admin: 10/17/17 04:14 Dose: Not Given Morphine Sulfate (Morphine) 2 mg IVPUSH Q2H PRN PRN Reason: Breakthrough Pain Testosterone Cypionate [Depo- Testosterone] Patient's Ow 1 ampule IM ASDIRECTED [facility] Ondansetron HCl (Zofran) 4 mg IVPUSH Q6H PRN PRN Reason: Nausea/Vomiting Simvastatin (Zocor) 20 mg PO BEDTIME [facility] Sodium Chloride (Saline Flush) 10 ml FLUSH ASDIRECTED PRN PRN Reason: Keep Vein Open Triamterene/HCTZ (Dyazide 25-37.5 Mg) 1 each PO DAILY [facility] - Assessment Assessment (Free Text/Narrative):: POD#1 - s/p right PRECIOUS - Plan Plan (Free Text/Narrative):: 1. Hgb 13.2. 2. Discharge to home today if cleared by Hospitalist service. 3. 325mg ASA BID, frequent mobility, TEDs. The pt's case was discussed with Dr. Gaffney.
--- NOTE | 2017-10-17 07:45 | PCM48HPAN ---
Post Anesthesia Note - EVALUATION WITHIN 48HRS OF ANESTHETIC Vital Signs in Normal Range: Yes Patient Participated in Evaluation: Yes Respiratory Function Stable: Yes Airway Patent: Yes Cardiovascular Function Stable: Yes Hydration Status Stable: Yes Pain Control Satisfactory: Yes Nausea and Vomiting Control Satisfactory: Yes Mental Status Recovered: Yes Pulse Rate: 78 Resp Rate: 18 Temperature: 37.1 C Blood Pressure: 132/82 - COMMENTS/OBSERVATIONS Free Text/Narrative:: no anesthesia complications noted
--- NOTE | 2017-10-17 07:49 | PCM.DCSUM1 ---
Discharge Summary - Hospital Course Brief History: Tao is a 72 yo male who underwent right PRECIOUS with Dr. Gaffney on 10-16-2017. The procedure was completed under spinal anesthesia. The pt tolerated the procedure well and was admitted to the Medical-Surgical Unit. Medical management was provided by the Hospitalist service. The pt's Hospital course was uneventful. The pt's Hgb on POD#1 was 13.2. On POD#1, 325mg ASA BID was initiated for VTE prophylaxis. SCDs and TEDs were also ordered. A Mepilex dressing was placed at the incision site at the time of surgery and remained clean and dry. The pt participated in P.T. and O.T. and progressed well. He followed the PRECIOUS precautions. The pt was allowed to WBAT. On POD#1, the pt was deemed appropriate to discharge to home with his . - Discharge Data Discharge Date: 10/17/17 Discharge Disposition: Home, Self-Care 01 Condition: Good - Patient Summary/Data Consults: Consultations 10/16/17 06:45 OT Evaluation and Treatment [CONS] Routine PT Evaluation and Treatment [CONS] Routine 10/16/17 06:46 Consult to Physician [CONS] Routine - Patient Instructions Diet: Usual Diet as Tolerated Activity: Apply Ice, As Tolerated, Elevate Extremity, Full Weight Bearing Activity, Other: PRECIOUS precautions Driving: Do Not Drive Showering/Bathing: May Shower Wound/Incision Care: Keep Operative Site/Wound Site Clean and Dry, Do NOT Change Dressing Notify Provider of: Fever, Increased Pain, Swelling and Redness, Drainage, Nausea and/or Vomiting Other/Special Instructions: Please get up and moving around every hour while awake. This helps to prevent blood clots. Please use your walker and have help with mobility as needed. Please take a 325mg ASPIRIN TWICE DAILY. This also helps to prevent blood clots. The aspirin is being used for blood clot prevention and not for pain management, so please do not miss a dose of the medication. At home, please complete the exercises that you learned during the Hospital stay. Schedule for physical therapy. Use the pain medication as needed. The medication may cause drowsiness and constipation. Contact your primary care provider for instructions if you are constipated. You may use a stool softener like docusate sodium or Colace 100mg twice daily and/or a laxative like Miralax daily for constipation. Increase your water and fiber intake while you are using the pain medication. Please try to wean from use of the pain medication as soon as able. Wear the MARCO hose during the day and you may remove these at night. Elevate the limb to decrease swelling. Place ice to the area often. Place a towel between your skin and the blue pad. Use the incentive spirometer often. Take deep breaths throughout the day. Increase your protein intake while you are healing. Follow the total hip arthroplasty precautions. Call the Clinic with questions or concerns - [phone]. - Discharge Plan Prescriptions/Med Rec: Acetaminophen/HYDROcodone [Trimble 325-5 MG] 1 - 2 tab PO Q6H PRN #40 tablet PRN Reason: Pain Aspirin [Ecotrin] 325 mg PO BID #84 tab.ec Home Medications: Home Meds Allopurinol [Zyloprim] 300 mg PO DAILY 05/26/17 [History] Nebivolol [Bystolic] 5 mg PO DAILY 05/26/17 [History] Testosterone Cypionate [Depo-Testosterone] 200 mg IM ASDIRECTED 05/26/17 [ History] Triamterene/Hydrochlorothiazid [Triamterene-HCTZ 37.5-25 MG] 1 tab PO DAILY [History] Ubidecarenone [Co Q-10] 100 mg PO DAILY 05/26/17 [History] atorvaSTATin [Lipitor] 20 mg PO DAILY 05/26/17 [History] Acetaminophen/HYDROcodone [Trimble 325-5 MG] 1 - 2 tab PO Q6H PRN #40 tablet 10/17 [Rx] Aspirin [Ecotrin] 325 mg PO BID #84 tab.ec 10/17/17 [Rx] Docusate Sodium [Colace] 100 mg PO BID cap 10/17/17 [Rx] Famotidine [Pepcid] 20 mg PO Q12H tablet 10/17/17 [Rx] Patient Handouts: Steps to Quit Smoking Referrals: Radha Lundberg PA-C [Physician Assistant [employer]om[employer]] - - Patient Data Vitals - Most Recent: Last Vital Signs Temp 98.8 F 10/17/17 07:45 Pulse 78 10/17/17 07:45 Resp 18 10/17/17 07:45 BP 132/82 10/17/17 07:45 Pulse Ox 98 10/17/17 04:03 Weight - Most Recent: 191 lb 12.835 oz I&O - Last 24 hours: Intake & Output 10/16/17 10/17/17 10/17/17 22:59 06:59 14:59 Intake Total 0 2650 Output Total 780 Balance 0 1870 Lab Results - Last 24 hrs: Laboratory Results - last 24 hr 10/16/17 10/17/17 10/17/17 Range/Units 09:11 05:35 05:35 WBC 7.93 (4.23-9.07) K/mm3 RBC 4.57 L (4.63-6.08) M/mm3 Hgb 13.2 L (13.7-17.5) gm/L Hct 39.7 L (40.1-51.0) % MCV 86.9 (79.0-92.2) fl MCH 28.9 (25.7-32.2) pg MCHC 33.2 (32.2-35.5) g/dl RDW Std Deviation 42.6 (35.1-43.9) fL Plt Count 230 (163-337) K/mm3 MPV 10.2 (9.4-12.3) fl Sodium 136 (136-145) mEq/L Potassium 3.7 (3.5-5.1) mEq/L Chloride 101 (98-107) mEq/L Carbon Dioxide 27 (21-32) mEq/L Anion Gap 11.7 (5-15) BUN 14 (7-18) mg/dL Creatinine 1.3 (0.7-1.3) mg/dL Est Cr Clr Drug Dosing 56.31 mL/min Estimated GFR (MDRD) 55 (>60) mL/min BUN/Creatinine Ratio 10.8 L (14-18) Glucose 115 (80-115) mg/dL Calcium 8.5 (8.5-10.1) mg/dL Total Bilirubin 0.6 (0.2-1.0) mg/dL AST 35 (15-37) U/L ALT 28 (16-63) U/L Alkaline Phosphatase 55 (46-116) U/L Total Protein 6.4 (6.4-8.2) g/dl Albumin 3.1 L (3.4-5.0) g/dl Globulin 3.3 gm/dL Albumin/Globulin Ratio 0.9 L (1-2) Blood Type A NEGATIVE Gel Antibody Screen Negative Med Orders - Current: Current Medications Hydrocodone Bitart/Acetaminophen (Trimble 325-5 Mg) 1 - 2 tab PO Q4H PRN PRN Reason: Pain Last Admin: 10/17/17 03:59 Dose: 2 tab Allopurinol (Zyloprim) 300 mg PO DAILY [facility] Aspirin (Ecotrin) 325 mg PO BID [facility] Calcium Carbonate/Glycine (Tums) 500 mg PO Q2H PRN PRN Reason: INDIGESTION Carvedilol (Coreg) 3.125 mg PO BID [facility] Docusate Sodium (Colace) 100 mg PO BID [facility] Last Admin: 10/16/17 21:25 Dose: 100 mg Famotidine (Pepcid) 20 mg PO Q12H [facility] Last Admin: 10/16/17 21:25 Dose: 20 mg Cefazolin Sodium/Dextrose 2 gm (/ Premix) 50 mls @ 100 mls/hr IV Q8H [facility] Stop: 10/17/17 09:59 Last Admin: 10/17/17 04:14 Dose: Not Given Morphine Sulfate (Morphine) 2 mg IVPUSH Q2H PRN PRN Reason: Breakthrough Pain Testosterone Cypionate [Depo- Testosterone] Patient's Ow 1 ampule IM ASDIRECTED [facility] Ondansetron HCl (Zofran) 4 mg IVPUSH Q6H PRN PRN Reason: Nausea/Vomiting Simvastatin (Zocor) 20 mg PO BEDTIME [facility] Sodium Chloride (Saline Flush) 10 ml FLUSH ASDIRECTED PRN PRN Reason: Keep Vein Open Triamterene/HCTZ (Dyazide 25-37.5 Mg) 1 each PO DAILY [facility] Discontinued Medications Bupivacaine HCl (Sensorcaine-Mpf 0.75%) Confirm Administered Dose 30 ml .ROUTE .STK-MED ONE Stop: 10/16/17 08:59 Bupivacaine HCl (Marcaine 0.25%) Confirm Administered Dose 30 ml .ROUTE .STK- MED ONE Stop: 10/16/17 09:35 Last Admin: 10/16/17 11:21 Dose: 30 ml Calcium Carbonate/Glycine (Tums) Confirm Administered Dose 500 mg .ROUTE .STK- MED ONE Stop: 10/16/17 20:28 Last Admin: 10/17/17 03:32 Dose: Not Given Cefazolin Sodium (Ancef) Confirm Administered Dose 2 gm .ROUTE .STK-MED ONE Stop: 10/16/17 08:59 Last Admin: 10/16/17 11:14 Dose: 2 gm Cefazolin Sodium (Ancef) Confirm Administered Dose 2 gm .ROUTE .STK-MED ONE Stop: 10/16/17 09:35 Morphine Sulfate 8 mg/Epinephrine HCl 0.3 mg/Cefuroxime Sodium 750 mg/Ketorolac Tromethamine 30 mg/Sodium Chloride 27.9 ml 0 mg .XX ONETIME ONE Stop: 10/16/17 06:46 Last Admin: 10/17/17 04:23 Dose: Not Given Morphine Sulfate 8 mg/Epinephrine HCl 0.3 mg/Cefuroxime Sodium 750 mg/Sodium Chloride 28.9 ml 0 mg .XX ONETIME ONE Stop: 10/16/17 06:46 Last Admin: 10/16/17 11:20 Dose: 758.3 mg Diphenhydramine HCl (Benadryl) 25 mg IVPUSH Q6H PRN PRN Reason: itching Stop: 10/16/17 14:30 Fentanyl (Sublimaze) 50 mcg IVPUSH Q5M PRN PRN Reason: pain Stop: 10/16/17 14:30 Lactated Ringer's (Ringers, Lactated) 1,000 mls @ 125 mls/hr IV ASDIRECTED [facility] Last Admin: 10/16/17 09:15 Dose: 125 mls/hr Lactated Ringer's (Ringers, Lactated) Confirm Administered Dose 1,000 mls @ as directed .ROUTE .STK-MED ONE Stop: 10/16/17 10:27 Lactated Ringer's (Ringers, Lactated) Confirm Administered Dose 1,000 mls @ as directed .ROUTE .STK-MED ONE Stop: 10/16/17 11:31 Lidocaine HCl (Xylocaine-Mpf 1%) 5 ml .ROUTE .STK-MED ONE Stop: 10/16/17 09:01 Lidocaine/Sodium Bicarbonate (Buffered Lidocaine 1% In Ns 8.4%) 0.25 ml IDERM ONETIME PRN PRN Reason: Prior to IV Start Last Admin: 10/16/17 09:14 Dose: 0.25 ml Morphine Sulfate (Morphine) 2 mg IVPUSH Q2H PRN PRN Reason: Breakthrough Pain Morphine Sulfate (Duramorph Pf) Confirm Administered Dose 10 mg .ROUTE .STK-MED ONE Stop: 10/16/17 09:00 Naloxone HCl (Narcan) 0.1 mg IVPUSH Q5M PRN PRN Reason: Oversedation Non-Formulary Medication (Ubidecarenone) 100 mg PO DAILY [facility] Phenylephrine HCl (Phenylephrine In Ns 100 Mcg/Ml) Confirm Administered Dose 1 mg .ROUTE .STK-MED ONE Stop: 10/16/17 10:28 Phenylephrine HCl (Phenylephrine In Ns 100 Mcg/Ml) Confirm Administered Dose 1 mg .ROUTE .STK-MED ONE Stop: 10/16/17 11:20 Propofol (Diprivan 20 Ml) Confirm Administered Dose 600 mg .ROUTE .STK-MED ONE Stop: 10/16/17 08:59 Tramadol HCl (Ultram) 50 - 100 mg PO Q4H PRN PRN Reason: Pain Tranexamic Acid (Cyklokapron) Confirm Administered Dose 1,000 mg .ROUTE .STK- MED ONE Stop: 10/16/17 09:35 Last Admin: 10/16/17 11:23 Dose: 1,000 mg Vancomycin HCl (Vancomycin) Confirm Administered Dose 1 gm .ROUTE .STK-MED ONE Stop: 10/16/17 09:35 Last Admin: 10/16/17 11:22 Dose: 1 gm
[2017-10-17] MEDS: Famotidine 20 MG Tab PO SCH (08:41)
[2017-10-17] MEDS: Docusate Sodium 100 MG Cap PO SCH (08:42)
[2017-10-17] MEDS ORDERED: Allopurinol 300 MG Tab PO SCH (09:00)
[2017-10-17] MEDS ORDERED: Aspirin 325 MG Tab.EC PO SCH (09:00)
[2017-10-17] MEDS ORDERED: Hydrochlorothiazide/Triamterene 25-37.5 MG Cap PO SCH (09:00)
[2017-10-17] MEDS ORDERED: Carvedilol 3.125 MG Tab PO SCH (09:00)
[2017-10-17] MEDS ORDERED: Non-Formulary Medication 1 Each (Ubidecarenone 100 MG) PO SCH (09:00)
[2017-10-17] MEDS ORDERED: Simvastatin 20 MG Tab PO SCH (21:00)
--- NOTE | 2017-10-19 13:41 | PCM.OPNOTE ---
- General Post-Op/Procedure Note Date of Surgery/Procedure: 10/16/17 Operative Procedure(s): right total hip arthroplasty Pre Op Diagnosis: right hip osteoarthrosis Post-Op Diagnosis: Same Anesthesia Technique: Local, MAC, Spinal Primary Surgeon: Clement Gaffney Anesthesia Provider: Nhi Kat Promotional Representative: Radha Lundberg Promotional Representative: Maureen Martinez EBL in mLs: 150 Complications: None Condition: Good Free Text/Narrative:: 54 6 36+0
--- NOTE | 2017-10-19 23:00 | OR ---
DATE OF OPERATION: 10/16/2017 SURGEON: Clement Gaffney MD OPERATION PERFORMED: Right total hip arthroplasty. PREOPERATIVE DIAGNOSIS: Right hip osteoarthrosis. POSTOPERATIVE DIAGNOSIS: Right hip osteoarthrosis. ANESTHESIA: Local MAC with spinal. ANESTHESIA PROVIDER: Nhi Kat. ASSISTANTS: Radha Lundberg PA-C and Maureen Martinez LPN. ESTIMATED BLOOD LOSS: 150 mL. COMPLICATIONS: None. CONDITION: Stable. DESCRIPTION OF PROCEDURE: The patient was identified in the preop holding area where proper site was marked and identified by the surgeon. The patient was taken back to the operating room after adequate anesthesia. The patient was placed in a left lateral decubitus position. An axillary roll was placed. All bony prominences were well padded. Pegs were then placed and were well padded. The patient's gluteal fold was parallel to the floor. At this time, the right hip was then sterilely prepped and draped in the usual sterile fashion. OR time-out was performed. The patient received 2 g IV Ancef. At this time, incision was made centered over the greater trochanter. This was taken down to the IT band and gluteal fascia, which was then incised along the incisional length. Charnley retractor was then placed. The short external rotators were identified, take down of the short external rotators was done from the piriformis down to the level of the lesser trochanter and a capsulotomy was performed. The hip was then dislocated. Neck cut was then completed. Anterior posterior acetabular retractors were then placed and the remaining labrum along with pulvinar was resected. Starting with a size 48 reamer, I was able to ream up to a 54 which was found to have good bite. At this time, a 54 mm trial was placed and was found to have adequate fixation. At this time, a 54 mm solid Tritanium acetabular Cliff cup was then impacted in place with roughly 45 degrees of abduction and 20 degrees of anteversion. At this time, attention was turned to the femur. Box chisel was used out laterally. A starter awl was placed down the canal. Starting with a 0 broach, I was able to broach up to a size 6 which was found to be rotationally and vertically stable. At this time, a 36 mm flat liner was impacted into place for the 36 mm head in the acetabulum and a 36+ 0 trial was trialled. This was found to have adequate tenriism of leg lengths and it was stable throughout range of motion. At this time, the hip was dislocated and a size 6 Accolate 2 Cliff stem was impacted in place along with a 36+ 0 ceramic head. The hip was then relocated. Note, two #5 Ethibond sutures were used for closure of the short external rotators and capsule. Three liters of pulse lavage irrigation with Ancef was then irrigated through the hip. Topical tranexamic acid as well as vancomycin powder was placed. A #2 barbed suture was used for closure of the IT band and gluteal fascia. 2-0 Vicryl was used subcutaneously and Prineo was used for the skin. The patient had a sterile soft dressing applied and was sent to the PACU in stable condition. MMODAL /[id number]
[2017-10-20] MEDS ORDERED: TESTOSTERONE CYPIONATE IM SCH (09:00)
== END 2017-10-17 12:08 | disposition home or self-care (01) | DRG 470 ==
LOC: JD.MS 08:16
PROVIDERS: ADMIT Orthopaedic Surgery; ATTEND Orthopaedic Surgery
PROC: 0SR90JZ Replacement of Right Hip Joint with Synthetic Substitute, Open Approach (ICD-10-PCS; principal; 2017-10-16)
PROC: 3E0U029 Introduction of Other Anti-infective into Joints, Open Approach (ICD-10-PCS; principal; 2017-10-16)
DX: M16.11 Unilateral primary osteoarthritis, right hip (principal); I25.10 Atherosclerotic heart disease of native coronary artery without angina pectoris; F17.220 Nicotine dependence, chewing tobacco, uncomplicated; K21.9 Gastro-esophageal reflux disease without esophagitis; I10 Essential (primary) hypertension; G62.9 Polyneuropathy, unspecified; M85.80 Other specified disorders of bone density and structure, unspecified site; E78.5 Hyperlipidemia, unspecified; I12.9 Hypertensive chronic kidney disease with stage 1 through stage 4 chronic kidney disease, or unspecified chronic kidney disease; N18.9 Chronic kidney disease, unspecified; M32.9 Systemic lupus erythematosus, unspecified; D72.819 Decreased white blood cell count, unspecified; J30.9 Allergic rhinitis, unspecified; I70.90 Unspecified atherosclerosis; E79.0 Hyperuricemia without signs of inflammatory arthritis and tophaceous disease; R39.198 Other difficulties with micturition; M21.962 Unspecified acquired deformity of left lower leg; G89.29 Other chronic pain; M54.9 Dorsalgia, unspecified; M53.3 Sacrococcygeal disorders, not elsewhere classified; R25.1 Tremor, unspecified; Z79.82 Long term (current) use of aspirin; Z88.8 Allergy status to other drugs, medicaments and biological substances; Z95.5 Presence of coronary angioplasty implant and graft; Z91.048 Other nonmedicinal substance allergy status; Z79.899 Other long term (current) drug therapy; Z96.653 Presence of artificial knee joint, bilateral
CPT/HCPCS: 01214; 36415; 73501-26-RT; 73501-RT; 80053; 85027; 86850; 86900; 86901; 94762; 97110-GP; 97116-GP; 97161-GP; 97165-GO; 97535-GO; A9270-GY; C1776; J0171; J0690; J0697; J2270; J2704; J3370; J3490; J7120

== ENCOUNTER 2018-06-28 08:37 | Day surgery (SDC) | payer MEDICARE, BC ==
[~2018-06-28 08:37] MED LIST changes: -Morphine 2 MG/ML Syringe IVPUSH PRN; -Morphine 8 MG, EPINEPHrine 0.3 MG, Cefuroxime 750 MG, Ketorolac 30 MG, Sodium Chloride ... ONE; -Morphine 8 MG, EPINEPHrine 0.3 MG, Cefuroxime 750 MG, Sodium Chloride 0.9% 28.9 ML ONE; -Naloxone 0.4 MG/ML SDV IVPUSH PRN; -Ondansetron 4 MG/2 ML SDV IVPUSH PRN; -traMADol 50 MG Tab PO PRN
[2018-06-28] MEDS ORDERED: Lidocaine 1% 30 ML SDV ONE (08:44)
[2018-06-28] MEDS ORDERED: Bupivacaine 0.25% 30 ML SDV ONE (08:44)
[2018-06-28] MEDS ORDERED: ceFAZolin 1 GM Vial ONE (09:09)
[2018-06-28] MEDS ORDERED: traMADol 50 MG Tab PO PRN (09:27)
--- NOTE | 2018-07-02 07:12 | PCM.OPNOTE ---
- General Post-Op/Procedure Note Date of Surgery/Procedure: 06/28/18 Operative Procedure(s): left carpal tunnel release Pre Op Diagnosis: left median nerve compression neuropathy Post-Op Diagnosis: Same Anesthesia Technique: Local Primary Surgeon: Clement Gaffney Steam Bone Press Tender: Radha Lundberg in mLs: 5 Complications: None Condition: Good
--- NOTE | 2018-07-04 07:49 | OR ---
DATE OF OPERATION: 06/28/2018 SURGEON: Clement Gaffney MD OPERATION PERFORMED: Left carpal tunnel release. PREOPERATIVE DIAGNOSIS: Left median nerve compression neuropathy. POSTOPERATIVE DIAGNOSIS: Left median nerve compression neuropathy. ANESTHESIA: Local. ANESTHESIA PROVIDER: TEMPERATURE REGULATOR PYROMETER: Radha Lundberg PA-C. ESTIMATED BLOOD LOSS: Less than 5 mL. COMPLICATIONS: None. CONDITION: Stable. DESCRIPTION OF PROCEDURE: The patient was identified in the preop holding area. Proper site was marked and identified by the surgeon. The patient was taken back to the operating theater where after adequate anesthesia, the patient's left upper extremity was sterilely prepped and draped in the usual sterile fashion. OR time-out was performed. The patient did not receive antibiotics and it is not indicated for soft tissue hand procedure. At this time, the left upper extremity was exsanguinated and an Esmarch was used as a tourniquet on the forearm. At this time, using 1% lidocaine without epinephrine and 0.25% Marcaine without epinephrine, the palmar cutaneous branch of the median nerve was anesthetized and then the incisional site was anesthetized using Galvan cardinal line and ulnar border of the fourth digit as reference. Once this had set up, an incision was made. Blunt dissection was taken down to the palmar cutaneous fascia. Palmar cutaneous fascia was incised with a [place] blade. At this time, the transverse carpal ligament was identified. A small rent was made in the transverse carpal ligament with a [place] blade under direct visualization. Resection of the transverse carpal ligament was done distally using tenotomy scissors making sure to stop short of the palmar arch. At this time, attention was turned proximally after it was found to be adequately released. Using the tenotomy scissors keeping the tips ulnar to protect the palmar cutaneous branch of the median nerve, the superficial forearm fascia as well as the transverse carpal ligament were resected proximally. It was found to be adequate release both proximally and distally. At this time, adequate saline was irrigated through the wound. 4-0 nylon sutures were used closure of the skin. The patient was placed in a sterile soft dressing and sent to PACU in stable condition. MMODAL /[id number]
== END 2018-06-28 10:38 | disposition home or self-care (01) ==
LOC: JD.SDS 08:37
PROVIDERS: ATTEND Orthopaedic Surgery
DX: G56.02 Carpal tunnel syndrome, left upper limb (principal); I10 Essential (primary) hypertension; K21.9 Gastro-esophageal reflux disease without esophagitis; E78.5 Hyperlipidemia, unspecified; I25.10 Atherosclerotic heart disease of native coronary artery without angina pectoris; M19.90 Unspecified osteoarthritis, unspecified site; J30.9 Allergic rhinitis, unspecified; Z88.5 Allergy status to narcotic agent; Z88.6 Allergy status to analgesic agent; Z88.8 Allergy status to other drugs, medicaments and biological substances; Z91.048 Other nonmedicinal substance allergy status; Z79.2 Long term (current) use of antibiotics; Z79.82 Long term (current) use of aspirin; Z79.899 Other long term (current) drug therapy; Z96.651 Presence of right artificial knee joint; Z98.890 Other specified postprocedural states; Z87.891 Personal history of nicotine dependence
CPT/HCPCS: 64721; 87641; A9270; J0690; J3490; J7120